=== PATIENT | male | born 1940 | race Caucasian/White ===

== ENCOUNTER 2017-07-21 11:19 | Emergency (ER) | payer MEDICARE ==
[2013-06-25 10:25] VITALS: BMI 29.7
[~2017-07-21 11:19] MED LIST: ASPIRIN 81 MG E81 MG PO; FISH OIL 1,2001 CA1 PO; GLUCOSAMINE & C1 CAP PO; PLAVIX75 MG PO; PRAVACHOL40 MG PO
== END 2017-07-21 14:47 | disposition home or self-care (01) ==
LOC: D.ER 11:19
DX: B02.9 Zoster without complications (principal)

== ENCOUNTER 2017-07-31 12:42 | Inpatient (IN) | payer MEDICARE ==
[2017-07-31] VITALS (19 sets, daily range): BP systolic 108–144; BP diastolic 59–75
--- NOTE | ~2017-07-31 | HEMODYNAMI ---
PATIENT:GINNY MAXWELL MEDICAL RECORD: [id number] : 44 [id number] ADMISSION DATE: 07/31/17 Generatedon:07/31/201714:08 Patient name: GINNY MAXWELL Patient #: [id number] SSN: : 1940 Date of study: 07/31/2017 Page: Of Hemodynamic Procedure Report Patient Data Patient Demographics Procedure consent was obtained First Name: GINNY Gender: Male Last Name: ALISSA : 1940 Middle Initial: G Age: 76 year(s) Patient #: [id number] Race: Unknown Additional ID: [id number] Contact details [address]: [address] [place] [address] State: [place] City: [place] Zip code: [address] Past Medical History Allergies Allergen Reaction Date Comments Reported Penicillins 07/31/2017 Admission Admission Data Admission Date: 07/31/2017 Admission Time: 12:42 Procedure Procedure Types Cath Procedure Diagnostic Procedure LHC LHC w/Coronaries PCI Procedure Coronary Stent Additional AMI-BMS/ALY Initial Miscellaneous Procedures Moderate Sedation up to 30 minutes Procedure Description Procedure Date Procedure Date: 07/31/2017 Procedure Start Time: 13:23 Procedure End Time: 14:08 Procedure Staff Name Function Az Kelly MD Performing Physician Stella Mayes RT Scrub Lupe Good RN Nurse Ambika Wheeler RT Monitor Procedure Data Cath Procedure Fluoroscopy Diagnostic fluoroscopy Total fluoroscopy Time: 10 time: 10 min min Diagnostic fluoroscopy Total fluoroscopy dose: dose: 1779 mGy 1779 mGy Contrast Material Contrast Material Type Amount (ml) Isovue 300 169 Entry Location Entry Primary Successful Side Size Upsize Upsize Entry Closure Succes sful Closure Location (Fr) 1 (Fr) 2 (Fr) Remarks Device Remarks Femoral Right 6 Fr Exoseal artery Short Estimated blood loss: 10 ml Diagnostic catheters Device Type Used For End Catheter Placement Cordis 5Fr Pigtail LV Angiography Catheter (MP) Cordis 5Fr JL 4.0 Left Coronary Catheter (MP) Angiography Cordis 5Fr 3DRC Catheter Right Coronary (MP) Angiography Procedure Complications No complications Procedure Medications Medication Administration Route Dosage Oxygen NC 2 l/min Lidocaine 2% added to field 20 Heparin Flush Bag added to field 2 bags (1000units/500ml NS) 0.9% NaCl I.V. 100 ml/hr Integrilin (Bolus I.V. 9 ml 2mg/ml) Integrilin (Bolus 9 ml 2mg/ml) Heparin Bolus I.V. 4000 units Integrilin Drip I.V. drip 15.5 ml/hr (75mg/100ml) Plavix P.O. 600 mg Versed I.V. 1 mg Fentanyl I.V. 50 mcg Versed I.V. 1 mg Fentanyl I.V. 50 mcg Hemodynamics Rest Heart Rate: 81 (bpm) Snapshots Pre Cath Intra NCS Post Cath Vital Signs Time Heart Resp SPO2 etCO2 NIBP (mmHg) Rhythm Pain Sedation Rate (ipm) (%) (mmHg) Status Level (bpm) 13:19:36 81 18 100 0 122/72(94) NSR 0 (11) 10(A) , No pain 13:23:53 83 15 96 0 111/66(89) NSR 0 (11) 10(A) , No pain 13:28:06 78 14 96 0 107/58(82) NSR 0 (11) 9(A) , No pain 13:32:18 83 15 98 0 107/63(82) NSR 0 (11) 9(A) , No pain 13:36:30 81 16 97 0 107/65(89) NSR 0 (11) 9(A) , No pain 13:40:40 83 14 98 0 124/72(98) NSR 0 (11) 9(A) , No pain 13:44:56 81 14 99 0 132/72(98) NSR 0 (11) 9(A) , No pain 13:49:12 79 13 99 0 130/73(99) NSR 0 (11) 10(A) , No pain 13:53:26 83 14 99 0 127/75(104) NSR 0 (11) 10(A) , No pain 13:57:42 83 13 99 0 122/72(102) NSR 0 (11) 10(A) , No pain 14:01:56 86 10 100 0 132/71(100) NSR 0 (11) 10(A) , No pain 14:06:10 80 12 100 0 121/74(101) NSR 0 (11) 10(A) , No pain Medications Time Medication Route Dose Verified Delivered Reason Notes Effectiveness by by 13:15:38 Oxygen NC 2 Az Agaie used for l/min Robin Good RN procedure 13:23:02 Fentanyl I.V. 50 Az Buffie for sedation mcg Robin Good RN 13:23:55 Versed I.V. 1 mg Az Yungie for sedation Robin Good RN 13:24:13 Lidocaine 2% added 20ml Az Az for local to vial Robin Kelly MD anesthetic field 13:24:19 Heparin Flush added 2 Az Az used for Bag to bags Robin Kelly MD procedure (1000units/500ml field NS) 13:24:28 0.9% NaCl I.V. 100 Az Buffie Per physician ml/hr Robin Good RN 13:29:24 Versed I.V. 1 mg Az Andrade for sedation Robin Good RN 13:29:28 Fentanyl I.V. 50 Az Buffie for sedation mcg Robin Good RN 13:31:17 Integrilin I.V. 9 ml Az Andrade for wasted 1 (Bolus 2mg/ml) Robin Good RN antiplatelet ml of therapy vial 13:32:58 Integrilin I.C 9 ml Az Az for wasted 1 (Bolus 2mg/ml) Robin Kelly MD antiplatelet ml of therapy vial 13:42:23 Heparin Bolus I.V. 4000 Az Andrade for verifi ed units Robin Good RN anticoagulation with dr kelly 13:50:15 Integrilin Drip I.V. 15.5 Az Andrade for (75mg/100ml) drip ml/hr Robin Good RN antiplatelet therapy 13:51:38 Plavix P.O. 600 Az Andrade for mg Robin Good RN antiplatelet therapy Procedure Log Time Note 13:03:56 Lupe Good RN sent for patient. Start room use. 13:03:57 Time tracking: Regular hours 13:04:00 Plan of Care:Hemodynamics will remain stable., Cardiac rhythm will remain stable., Comfort level will be maintained., Respiratory function will remain adequate., Patient/ family verbilizes understanding of procedure., Procedure tolerated without complication., Recovers from procedure without complications.. 13:04:04 Use device set Femoral Dx 13:04:05 Acist Syringe opened to sterile field. 13:04:05 Bag Decanter opened to sterile field. 13:04:06 Medline Cath Pack opened to sterile field. 13:04:07 St Ulises 260cm J .035 wire opened to sterile field. 13:04:08 Acist Hand Control opened to sterile field. 13:04:08 Acist Manifold opened to sterile field. 13:04:09 Diagnostic Infinity 5Fr Multipack catheter opened to sterile field. 13:04:09 Tegaderm 4 x 4 opened to sterile field. 13:04:18 Terumo 6Fr [place] Sheath opened to sterile field. 13:09:10 PERCUTANEOUS ENTRY 19GA needle opened to sterile field. 13:10:14 Patient received from ED to CCL 2 Alert and oriented. Tansferred to table in Supine position. 13:10:22 Warm blankets applied, and brie hugger turned on for patient comfort. 13:10:22 Correct patient and procedure confirmed by team. 13:10:23 Signed procedure consent form obtained from patient. 13:10:24 ECG and BP/O2 sat monitors applied to patient. 13:11:04 Full Disclosure recording started 13:15:38 Oxygen 2 l/min NC was administered by Lupe Good RN; used for procedure; 13:18:30 Vital chart was started 13:18:39 Rhythm: sinus rhythm , w/ ST elevation 13:18:44 H&P Date Dictated: 07/31/2017 Emergent; H&P N/A. 13:18:45 Pre-procedure instructions explained to patient. 13:18:46 Pre-op teaching completed and patient verbalized understanding. 13:18:47 Family in waiting room. 13:18:48 Patient NPO since Midnight. 13:19:05 Patient allergic to Penicillins 13:19:07 Is the patient allergic to Iodine/contrast media? No. 13:19:09 Is patient on blood thinner?No 13:19:12 Patient diabetic? No. 13:19:15 Previous problem with sedation/anesthesia? No ? 13:19:16 Snore? Yes 13:19:16 Sleep apnea? No 13:19:17 Deviated septum? No 13:19:18 Opens mouth fully? Yes 13:19:19 Sticks out tongue? Yes 13:19:20 Airway obstruction? No ? 13:19:22 Dentures? No ? 13:19:24 Pre procedure: right dorsailis pedis pulse 2+ Normal; easily identifiable; not easily obliterated 13:19:31 Patient pain scale 2/10 Chest. 13:19:37 IV patent on arrival in right hand with 0.9% NaCl at O. 13:19:52 Lab results completed and on chart. 13:19:54 Right groin area was prepped with chlora-prep and draped in sterile fashion 13:19:55 Alarms reviewed by R. N. 13::55 Sharps counted by scrub and verified by R.N. 13:22:17 ReserveOut PT Graphix J 182cm 0.014 guide wire opened to sterile field. 13:22:24 Final Timeout: patient, procedure, and site verified with staff and physician. All members of the team are in agreement. 13:23:02 Fentanyl 50 mcg I.V. was administered by Lupe Good RN; for sedation; 13:23:26 Right groin site verified by team. 13:23:29 Physical assessment completed. ASA score P 2 - A patient with mild systemic disease as per Az Kelly MD. 13:23:32 Sedation plan: IV Moderate Sedation Versed, Fentanyl 13:23:37 Procedure started. 13::55 Versed 1 mg I.V. was administered by Lupe Good RN; for sedation; 13:23:55 Local anesthetic to right femoral artery with Lidocaine 2% by Az Kelly MD.INITIAL ACCESS ONLY 13:24:13 Lidocaine 2% 20ml vial added to field was administered by Az Kelly MD; for local anesthetic; 13:24:19 Heparin Flush Bag (1000units/500ml NS) 2 bags added to field was administered by Az Kelly MD; used for procedure; 13:24:26 A 6 Fr Short sheath was inserted into the Right Femoral artery 13:24:28 0.9% NaCl 100 ml/hr I.V. was administered by Lupe Good RN; Per physician; 13:25:21 Baseline sample Acquired. 13:26:00 A CordSocialtext 5Fr Pigtail Catheter (MP) was advanced over the wire and used for LV Angiography. 13:26:17 LV gram done using DAVIS 13:26:34 EF : 50 % 13::37 Injector settings: Ml/sec: 10, Volume: 20, 13::39 Catheter removed. 13::44 A Cordis 5Fr JL 4.0 Catheter (MP) was advanced over the wire and used for Left Coronary Angiography. 13:27:49 Catheter removed. 13:28:16 A Cordis 5Fr 3DRC Catheter (MP) was advanced over the wire and used for Right Coronary Angiography. 13:29:08 Catheter removed. 13:29:16 Deligictronic Launcher 6Fr AR 2.0 SH guide catheter opened to sterile field. 13:29:24 Versed 1 mg I.V. was administered by Lupe Good RN; for sedation; 13:29:28 Fentanyl 50 mcg I.V. was administered by Lupe Good RN; for sedation; 13:30:04 6 Fr AR 2.0 SH guide catheter was inserted over the wire 13:31:17 Integrilin (Bolus 2mg/ml) 9 ml I.V. was administered by Lupe Good RN; for antiplatelet therapy; wasted 1 ml of vial 13:32:32 Reynolds Whisper J 300cm 0.014 guide wire opened to sterile field. 13:32:58 Integrilin (Bolus 2mg/ml) 9 ml I.C was administered by Az Kelly MD; for antiplatelet therapy; wasted 1 ml of vial 13:33:15 Whisper wire advanced. 13:34:47 The Javid OTW 2.5 x 18 stent was advanced then removed because of failure to cross lesion 13:36:03 Inflation number: 1 A Euphora 3.0 x 20 Balloon was prepped and advanced across the R PDA, then inflated to 17 ROXANA for 0:05 (min:sec). 13:36:14 Inflation number: 2 The Euphora 3.0 x 20 Balloon was reinflated across the R PDA, to 17 ROXANA for 0:05 (min:sec). 13:36:43 Inflation number: 3 The Euphora 3.0 x 20 Balloon was reinflated across the R PDA, to 19 ROXANA for 0:06 (min:sec). 13:36:57 Inflation number: 4 The Euphora 3.0 x 20 Balloon was reinflated across the R PDA, to 19 ROXANA for 0:05 (min:sec). 13:37:48 Balloon removed over the wire. 13:38:43 Inflation Number: 1 A [place] OTW 2.5 x 18 stent was prepped and advanced across the Prox RCA. The stent was deployed at 13 ROXANA for 0:08 (min:sec). 13:39:50 Wire removed. 13:42:05 [employer] PT Graphix J 300cm 0.014 guide wire opened to sterile field. 13:42:16 Graphix wire advanced. 13:42:23 Heparin Bolus 4000 units I.V. was administered by Lupe Good RN; for anticoagulation; verified with dr kelly 13:46:27 Stent catheter was removed intact over wire. 13:47:05 Inflation Number: 5 A Javid OTW 3.0 x 18 stent was prepped and advanced across the R PDA. The stent was deployed at 17 ROXANA for 0:05 (min:sec). 13:47:25 Stent catheter was removed intact over wire. 13:47:28 Wire removed. 13:48:01 Guide catheter removed. 13:48:08 Sheath removed intact; hemostasis achieved with Exoseal to the Right Femoral artery. 13:48:09 Procedure ended.(Physican Out) 13:50:15 Integrilin Drip (75mg/100ml) 15.5 ml/hr I.V. drip was administered by Lupe Good RN; for antiplatelet therapy; 13:51:38 Plavix 600 mg P.O. was administered by Lupe Good RN; for antiplatelet therapy; 13:51:51 Fluoroscopy time 10.00 minutes. 13:51:58 Fluoroscopy dose: 1779 mGy 13:51:58 Flurop Dose total: 1779 13:52:02 Contrast amount:Isovue 300 169ml. 13:52:04 Sharps counted by scrub and verified by R.N. 13:52:08 Insertion/operative site no bleeding no hematoma. 13:52:11 Post-op/insertion site Right Femoral artery dressed using a 4 x 4 and Tegaderm. 13:52:14 Post right femoral artery:stable, clean and dry 13:52:15 Post Procedure Pulses reassessed and unchanged 13:52:43 Post-procedure physical assessment completed. ASA score P 2 - A patient with mild systemic disease as per Az Kelly MD. 13:52:44 Post procedure rhythm: unchanged. 13:52:46 Estimated blood loss: 10 ml 13:52:49 Post procedure instruction explained to patient.Patient verbalizes understanding. 13:52:49 Patient needs reinforcement of post procedure teaching. 13:53:12 Procedure type changed to Cath procedure, Diagnostic procedure, LHC, LHC w/Coronaries, PCI procedure, Coronary Stent Additional, AMI-BMS/ALY Initial, Miscellaneous Procedures, Moderate Sedation up to 30 minutes 13:53:16 Procedure Complication : No complications 13:53:18 See physician's report for complete and final results. 13:53:32 Cordis 6Fr Exoseal opened to sterile field. 13:54:14 Merit BasixCompak Inflation Kit opened to sterile field. 13:54:37 IV Extension Set opened to sterile field. 13:55:46 Procedure and supply charges have been captured, reviewed, submitted and are correct. 14:07:49 Vital chart was stopped 14:07:52 Report given to CVICU. 14:07:55 Patient transfered to CVICU with Bed. 14:08:02 Procedure ended. 14:08:02 Full Disclosure recording stopped 14:08:06 End room use (Document Last) Intervention Summary Intervention Notes Time ActionType Lesion and Equipment Action# Pressure Duration Attributes Used 13:34:47 Discard Javid OTW Stent 2.5 x 18 stent 13:36:03 Inflate R PDA Euphora 1 17 00:05 balloon 3.0 x 20 Balloon 13:36:14 Reinflate R PDA Euphora 2 17 00:05 balloon 3.0 x 20 Balloon 13:36:43 Reinflate R PDA Euphora 3 19 00:06 balloon 3.0 x 20 Balloon 13:36:57 Reinflate R PDA Euphora 4 19 00:05 balloon 3.0 x 20 Balloon 13:38:43 Place stent Prox RCA Javid OTW 1 13 00:08 2.5 x 18 stent 13:47:05 Place stent R PDA [place] OTW 5 17 00:05 3.0 x 18 stent Device Usage Item Name Manufacture Quantity Catalog Number Hospital Part Current Min imal Lot# / Charge Number Stock Stock Serial# Code [facility] 1 [id number] [id number] 479949 409576 20 Syringe Jeds [employer] Bag Decanter Microtek 1 2001S 523391 64836 001269 5 Medical Inc. Medline Cath Cardinal 1 [id number] 077705 69480 726099 [address] [facility] St Ulises 1 582256 398745 128594 593163 30 260cm J .035 wire Acist Hand Acist 1 92801 054250 340559 152102 5 Control Medical Systems Inc Acist Acist 1 92670 859882 150172 874560 5 Bos[employer] Inc Diagnostic Cardinal 1 [id number] 540259 57099 141708 30 Infinity 5Fr Health Multipack catheter Tegaderm 4 x 3M 1 1626W 694439 954395 417917 5 4 Terumo 6Fr Terumo 1 QZY781 439768 261358 818414 40 [employer] Sheath PERCUTANEOUS [facility] 1 Y09378 878740 341014 5 ENTRY 19GA needle [place] [employer] [place] 1 [id number] 977485 601758 157238 5 PT Graphix J Scientific 182cm 0.014 guide wire Cordis 5Fr Cardinal 1 626020 5 Pigtail Health Catheter (MP) Cordis 5Fr Cardinal 1 755607 5 JL 4.0 Health Catheter (MP) Cordis 5Fr Cardinal 1 948321 5 3DRC Health Catheter (MP) Medtronic Medtronic 1 [id number] 136770 37639 359836 1 Launcher 6Fr AR 2.0 SH guide catheter Reynolds Reynolds 1 [id number] 503980 689761 841026 5 Whisper J Vascular 300cm 0.014 guide wire [place] OTW 2.5 Medtronic 1 [id number] 946382 39981 804512 5 [id number] x 18 stent Euphora 3.0 Medtronic 1 [id number] 615724 160958 432293 5 [id number] x 20 Balloon [place] [employer] [place] 1 [id number] 081370 712335 486985 5 PT Graphix J Scientific 300cm 0.014 guide wire Javid OTW 3.0 Medtronic 1 [id number] 860908 8986583 144478 5 [id number] x 18 stent Cordis 6Fr Cardinal 1 EX600 223888 214505 627982 10 [facility] Merit 1 ZS2515 419782 872580 503905 15 [facility] Medical Inflation Kit IV Extension Hospira 1 49069-64 177195 13220 077901 5 Set Signature Audit [place] Stage Time Signature Unsigned Intra-Procedure 07/31/2017 Ambika 2:08:17 PM Counts RT(R) Signatures Monitor : Ambika Signature : Counts RT Date : Time : [address] [place] [address]
[2017-07-31 13:32] LABS: BASOPHILS 0.3 % (0-2); EOSINOPHILS 0.6 % (0-7); HEMATOCRIT 44.8 % (42.0-54.0); HEMOGLOBIN 15.5 g/dL (13.5-17.5); LYMPHOCYTES 9.4 % (15-50); MCH 32.2 pg (26.0-34.0); MCHC 34.6 g/dL (31.0-37.0); MCV 93.1 fL (80.0-100.0); MEAN PLATELET VOLUME 9.9 fL (7.4-10.4); MONOCYTES 9.3 % (2-11); NEUTROPHILS 79.4 % (40-80); RBC 4.81 10x6/uL (4.20-6.10); RDW 12.3 % (11.5-14.5)
[2017-07-31 13:55] LABS: ALBUMIN 3.7 g/dL (3.4-5.0); ALKALINE PHOSPHATASE 67 U/L (46-116); ALT (SGPT) 61 U/L (10-68); BILIRUBIN - TOTAL 0.55 mg/dL (0.2-1.3); CALC OSMOLALITY 280 mosm/kg (275-300); CARBON DIOXIDE 25.3 mmol/L (21.0-32.0); CHLORIDE - SERUM 105 mmol/L (98-107); CREATININE - SERUM 0.9 mg/dL (0.6-1.3); GLUCOSE 122 mg/dL (74-106); PLATELET COUNT 300 10x3/uL (130-400); PROTEIN - SERUM 6.5 g/dL (6.4-8.2); SODIUM 140 mmol/L (136-145); UREA NITROGEN 16 mg/dL (7-18); eGFR NON AFRICAN AMERICAN 88 mL/min (90-120)
[2017-07-31 14:06] LABS: CHOL - HDL RATIO 3.7 ratio (2.3-4.9); CHOLESTEROL, TOTAL 143 mg/dL (0-200); CREATINE KINASE 419 UL (21-232); HDL CHOLESTEROL 39 mg/dL (32-96); LDL CHOLESTEROL 91 mg/dL (0-100); LDL-HDL RATIO 2.3 ratio (1.5-3.5); TRIGLYCERIDE 66 mg/dL (30-200); TROPONIN-I 0.023 ng/mL (0.000-0.060)
--- NOTE | 2017-07-31 14:36 | NUR ---
1416 PT ARRIVED IN THE CV ICU VIA BED FROM THE ASSISTANT DIRECTOR OF FINANCIAL AID PT IS AWAKE AND IS APPROPRIATE IN RESPONSES.. PT IS SUPINE WITH DRESSING TO THE RIGHT GROIN CDI.. PEDAL PULSES ARE PALPABLE. THERE IS PERIFERAL IV X2 WITH SALINE LOCK ON THE LEFT AND INTEGRILIN INFUSING ON THE RIGHT AT 15.5 CC/HR.. SR ON MONITOR WITH ELEVATED ST SEGMENT.. FAMILY IN THE CVICU WAITING AREA.. SEE FLOW SHEET FOR ASSESMENT FINDINGS.. AND VITAL SIGNS..
--- NOTE | 2017-07-31 18:45 | NUR ---
PATIENT SITTING UP ON BEDSIDE. FOOD TRAY WARMED AND GIVEN TO PATIENT. CALL LIGHT WITHIN REACH, BED IN LOW POSITION.
--- NOTE | 2017-07-31 19:30 | NUR ---
REPORT RECIEVED ASSESSMENT COMPLETED. SEE FLOW SHEET FOR FURTHER DEATILS. PT HAD WENT TO THE RESTROOM ON HIS OWN AN WAS DISCONNECTED FROM MONITOR. POSITIONED HIM FOR COMFORT AND HOOKED HIM BACK TO MONITOR. WILL CONTINUE TO CONTINUE TO MONITOR PT.
--- NOTE | 2017-07-31 21:00 | NUR ---
PT RESTING COMFORTABLY NO SIGNS OF DISTRESS. WILL CONTINUE TO MONITOR PT.
--- NOTE | 2017-07-31 23:00 | NUR ---
REASSESSMENT COMPLETED. SEE FLOW SHEET FURTHER DEATILS. NO ACUTE CHANGES. PT POSITIONED FOR COMFORT WILL CONTINUE TO MONITOR PT.
[2017-08-01] VITALS (10 sets, daily range): BP systolic 124–140; BP diastolic 59–79
--- NOTE | 2017-08-01 01:08 | NUR ---
PT REQUESTED TO GO TO THE RESTROOM. HELPED TO THE RESTROOM AND BACK TO BED SAFELY AND POSITIONED FOR COMFORT WILL CONTINUE TO MONITOR PT.
--- NOTE | 2017-08-01 03:16 | NUR ---
REASSESSMENT COMPLETED. NO ACUTE CHANGES. PT POSITIONED FOR COMFORT WILL CONTINUE TO MONITOR PT.
--- NOTE | 2017-08-01 05:16 | NUR ---
PT RESTING WITH NO SIGNS OF DISTRESS. WILL CONTINUE TO MONITOR PT.
--- NOTE | 2017-08-01 08:05 | NUR ---
SHIFT ASSESSMENT COMPLETE. PATIENT UP TO BEDSIDE FOR BREAKFAST.
--- NOTE | 2017-08-01 09:54 | NUR ---
PATIENT RESTING WITH EYES CLOSED AT THIS TIME. CALL LIGHT WITHIN REACH, BED IN LOW POSITION.
--- NOTE | 2017-08-01 11:14 | NUR ---
DISCHARGE INSTRUCTION GIVEN TO PATIENT AND , BOTH VERBALIZE UNDERSTANDING OF INSTRUCTIONS.
--- NOTE | 2017-08-01 11:20 | NUR ---
PATIENT DISCHARGED TO POV VIA W/C IN GOOD STABLE CONDITION. PATIENT TRANSFERRED SELF WITHOUT ASSIST.
--- NOTE | 2017-08-15 14:14 | OP ---
PATIENT NAME: GINNY MAXWELL MEDICAL RECORD: [id number] :44 LOCATION:[facility].CV08 ADMISSION DATE:07/31/17 SURGEON: ISAK NEWMAN MD DATE OF OPERATION: 07/31/2017 PROCEDURES: 1. Percutaneous transluminal coronary angioplasty stent, right coronary artery, patent ductus arteriosus. 2. Percutaneous transluminal coronary angioplasty stent, right coronary artery. 3. Left heart catheterization. 4. Selective coronary angiography. 5. Left ventriculogram. INDICATION: Acute inferior myocardial infarction. DESCRIPTION OF PROCEDURE: After informed consent was obtained and after a detailed explanation of the risks, benefits as well as alternative therapies, the patient elected to proceed with angiogram and angioplasty. The right femoral area is prepped and draped in normal sterile fashion. The right femoral artery was cannulated via modified Seldinger technique with placement of 6-[place] sheath. All catheters exchanged through this sheath. FINDINGS: The left ventriculogram was performed in standard 30-degree DAVIS view, reveals inferior hypokinesis, ejection fraction; however, preserved at 50%. SELECTIVE CORONARY ANGIOGRAPHY: 1. Left main showed no significant angiographic disease. 2. Left anterior descending has a 70% stenosis in the mid distal vessel. 3. Left circumflex has 80% stenosis proximally. 4. The right coronary has a clot in the mid distal vessel. PDA has 90% stenosis, proximal vessel with 70% to 80% stenosis. PTCA STENT OF THE RCA: The PDA was addressed with a 2.5 x 18 mm [place] proximal vessel with a 3.0 x 18 mm Javid. Result was 0% residual stenosis. OVERALL IMPRESSION: Successful percutaneous transluminal coronary angioplasty stent of the right coronary artery going from 90% initial stenosis with clot and 0% residual stenosis. No further clot. TRANSINT:[id number] Voice Confirmation ID: [id number] DOCUMENT ID: [id number] ISAK NEWMAN MD at 1414 CC: [id number] DICTATION DATE: 07/31/17 1405 [place] GOVERNOR: 07/31/17 1433 DIS IN 08/01/17 [place] [address]
== END 2017-08-01 11:20 | disposition home or self-care (01) | DRG 247 ==
LOC: D.CVICU 12:42 → D.ER 12:42 → EDSTATUS 14:00 → D.CVICU 14:26 → D.ER 14:26 → D.CVICU 14:27
PROVIDERS: Emergency Medicine; ADMIT Internal Medicine Interventional Cardiology
PROC: B2111ZZ Fluoroscopy of Multiple Coronary Arteries using Low Osmolar Contrast (ICD-10-PCS; 2017-07-31)
PROC: B2151ZZ Fluoroscopy of Left Heart using Low Osmolar Contrast (ICD-10-PCS; 2017-07-31)
PROC: 027034Z Dilation of Coronary Artery, One Artery with Drug-eluting Intraluminal Device, Percutaneous Approach (ICD-10-PCS; principal; 2017-07-31 14:00)
PROC: 4A023N7 Measurement of Cardiac Sampling and Pressure, Left Heart, Percutaneous Approach (ICD-10-PCS; 2017-07-31 14:00)
DX: I21.19 ST elevation (STEMI) myocardial infarction involving other coronary artery of inferior wall (principal); I25.10 Atherosclerotic heart disease of native coronary artery without angina pectoris; Z95.5 Presence of coronary angioplasty implant and graft; I10 Essential (primary) hypertension; E78.5 Hyperlipidemia, unspecified

== ENCOUNTER 2017-08-06 07:51 | Outpatient (CLI) | payer MEDICARE ==
--- NOTE | ~2017-08-06 | HEMODYNAMI ---
PATIENT:GINNY MAXWELL MEDICAL RECORD: [id number] : 44 LOCATION:[facility] ADMISSION DATE: 08/06/17 Generatedon:08/06/201710:34 Patient name: GINNY MAXWELL Patient #: [id number] SSN: : 1940 Date of study: 08/06/2017 Page: Of Hemodynamic Procedure Report Patient Data Patient Demographics Procedure consent was obtained First Name: GINNY Gender: Male Last Name: ALISSA : 1940 Middle Initial: G Age: 76 year(s) Patient #: [id number] Race: Unknown Additional ID: [id number] Contact details [address]: [address] [place] [address] State: [place] City: [place] Zip code: [address] Past Medical History Allergies Allergen Reaction Date Comments Reported Penicillins 07/31/2017 Admission Admission Data Admission Date: 08/06/2017 Admission Time: 7:51 Procedure Procedure Types Cath Procedure Diagnostic Procedure FFR/IVUS Intra-Coronary IVUS Initial PCI Procedure Coronary Stent Initial x2 Miscellaneous Procedures Moderate Sedation up to 30 minutes Procedure Description Procedure Date Procedure Date: 08/06/2017 Procedure Start Time: 10:11 Procedure End Time: 10:30 Procedure Staff Name Function Az Kelly MD Performing Physician Calin Workman RN Nurse Berto Garcia RT Monitor Shana Tao RT Scrub Procedure Data Cath Procedure Fluoroscopy Diagnostic fluoroscopy Total fluoroscopy Time: 6.4 time: 6.4 min min Diagnostic fluoroscopy Total fluoroscopy dose: 367 dose: 367 mGy mGy Contrast Material Contrast Material Type Amount (ml) Isovue 300 120 Entry Location Entry Primary Successful Side Size Upsize Upsize Entry Closure Patterson ccessful Closure Location (Fr) 1 (Fr) 2 (Fr) Remarks Device Remarks Radial Right 6 Fr Mechanical artery Short Compression Estimated blood loss: 10 ml Procedure Complications No complications Procedure Medications Medication Administration Route Dosage Heparin Flush Bag added to field 2 bags (1000units/500ml NS) 0.9% NaCl I.V. 100 ml/hr Oxygen NC 2 l/min Radial Cocktail added to field 1 syringe (Verapomil 2mg/Nitro 400mcg/Heparin 1500units) Radial Cocktail I.A. 1 syringe (Verapomil 2mg/Nitro 400mcg/Heparin 1500units) Fentanyl I.V. 50 mcg Versed I.V. 1 mg Heparin Bolus I.V. 4000 units Fentanyl I.V. 50 mcg Versed I.V. 1 mg Hemodynamics Rest Heart Rate: 68 (bpm) Pressure Samples Time Site Value (mmHg) Purpose Heart Use Rate(bpm) 10:20 AO 119/63(89) Snapshot 81 Snapshots Pre Cath Intra NCS Post Cath Vital Signs Time Heart Resp SPO2 etCO2 NIBP (mmHg) Rhythm Pain Sedation Rate (ipm) (%) (mmHg) Status Level (bpm) 10:03:50 82 18 93 0 142/85(113) NSR 0 (11) 10(A) , No pain 10:08:00 80 16 92 34 149/94(123) NSR 0 (11) 10(A) , No pain 10:12:22 86 18 92 41.6 137/77(123) NSR 0 (11) 10(A) , No pain 10:16:34 81 17 92 0 140/76(108) NSR 0 (11) 9(A) , No pain 10:20:43 81 18 95 9.8 135/77(107) NSR 0 (11) 9(A) , No pain 10:24:59 79 18 93 9 122/69(91) NSR 0 (11) 9(A) , No pain 10:29:07 80 18 93 9 117/74(91) NSR 0 (11) 9(A) , No pain Medications Time Medication Route Dose Verified Delivered Reason Note s Effectiveness by by 10:08:38 Heparin Flush added 2 bags Az Layton used for Bag to Robin Workman RN procedure (1000units/500ml field NS) 10:11:11 0.9% NaCl I.V. 100 Az Layton Per physician ml/hr Robin Workman RN 10:11:22 Oxygen NC 2 l/min Az Layton Per physician Robin Workman RN 10:11:56 Radial Cocktail added 1 Az Layton used for (Verapomil to syringe Robin Workman RN procedure 2mg/Nitro field 400mcg/Heparin 1500units) 10:12:00 Radial Cocktail I.A. 1 Az Bernardo for (Verapomil syringe Robin Kelly MD vasodilation 2mg/Nitro 400mcg/Heparin 1500units) 10:12:08 Fentanyl I.V. 50 mcg Az Layton for sedation Robin Workman RN 10:12:16 Versed I.V. 1 mg Az Layton for sedation Robin Workman RN 10:13:04 Heparin Bolus I.V. 4000 Az Layton for units Robin Workman RN anticoagulation 10:24:44 Fentanyl I.V. 50 mcg Az Layton for sedation Robin Workman RN 10:24:48 Versed I.V. 1 mg Az Layton for sedation Robin Workman RN Procedure Log Time Note 9:33:55 Berto Garcia RT(R) sent for patient. Start room use. 9:33:56 Time tracking: Regular hours 9:34:00 Plan of Care:Hemodynamics will remain stable., Cardiac rhythm will remain stable., Comfort level will be maintained., Respiratory function will remain adequate., Patient/ family verbilizes understanding of procedure., Procedure tolerated without complication., Recovers from procedure without complications.. 9:48:57 Patient received from Pre/Post Procedure Room to CCL 1 Alert and oriented. Tansferred to table in Supine position. 9:48:58 Warm blankets applied, and brie hugger turned on for patient comfort. 9:48:59 Correct patient and procedure confirmed by team. 9:49:00 Signed procedure consent form obtained from patient. 9:49:01 ECG and BP/O2 sat monitors applied to patient. 10:02:44 Vital chart was started 10:02:45 Baseline sample Acquired. 10:02:51 Rhythm: sinus rhythm 10:02:55 Full Disclosure recording started 10:03:00 H&P Date Dictated: 08/06/2017 New H&P dictated by physician.. 10:03:01 Pre-procedure instructions explained to patient. 10:03:02 Pre-op teaching completed and patient verbalized understanding. 10:03:03 Family in waiting room. 10:03:04 Patient NPO since Midnight. 10:03:06 Is the patient allergic to Iodine/contrast media? No. 10:03:07 Is patient on blood thinner?Yes 10:03:09 ACC The patient was administered the following blood thiners within the last 24 hours: ACCPlavix 10:03:12 Patient diabetic? No. 10:03:14 Previous problem with sedation/anesthesia? No ? 10:03:15 Snore? Yes 10:03:16 Sleep apnea? No 10:03:17 Deviated septum? No 10:03:17 Opens mouth fully? Yes 10:03:18 Sticks out tongue? Yes 10:03:20 Airway obstruction? No ? 10:03:21 Dentures? No ? 10:03:24 Pre procedure: right dorsailis pedis pulse 1+ Palpable, but thready & weak; easily obliterated 10:03:27 Modified Edward's test Ulnar < 7 seconds 10:03:28 Patient pain scale 0/10 ?. 10:03:34 IV patent on arrival in left hand with 0.9% NaCl at O. 10:03:35 Lab results completed and on chart. 10:03:38 Right Radial & Right Groin area was prepped with chlora-prep and draped in sterile fashion 10:03:40 Alarms reviewed by R. N. 10:03:40 Sharps counted by scrub and verified by R.N. 10:03:44 Use device set Radial PCI 10:03:46 Tegaderm 4 x 4 opened to sterile field. 10:03:47 Acist Manifold opened to sterile field. 10:03:48 Acist Syringe opened to sterile field. 10:03:48 Acist Hand Control opened to sterile field. 10:03:49 Bag Decanter opened to sterile field. 10:03:49 Medline Cath Pack opened to sterile field. 10:03:49 Merit BasixCompak Inflation Kit opened to sterile field. 10:03:50 Terumo 6Fr Slender Glidesheath opened to sterile field. 10:03:50 MBrace Wrist Support opened to sterile field. 10:03:50 St Ulises 260cm J .035 wire opened to sterile field. 10:04:56 --------ALL STOP TIME OUT------ 10:04:56 Final Timeout: patient, procedure, and site verified with staff and physician. All members of the team are in agreement. 10:04:59 Right Radial & Right Groin site verified by team. 10:05:02 Physical assessment completed. ASA score P 2 - A patient with mild systemic disease as per Az Kelly MD. 10:05:05 Sedation plan: IV Moderate Sedation Versed, Fentanyl 10:08:20 [place] Sci PT Graphix J 182cm 0.014 guide wire opened to sterile field. 10:08:21 [place] Wendell Eagleye IVUS Catheter opened to sterile field. 10:08:38 Heparin Flush Bag (1000units/500ml NS) 2 bags added to field was administered by Calin Workman RN; used for procedure; 10:10:18 Procedure started. 10:11:11 0.9% NaCl 100 ml/hr I.V. was administered by Calin Workman RN; Per physician; 10:11:22 Oxygen 2 l/min NC was administered by Calin Workman RN; Per physician; 10:11:38 Cordis 6FR XBLAD 3.5 guide catheter opened to sterile field. 10:11:56 Radial Cocktail (Verapomil 2mg/Nitro 400mcg/Heparin 1500units) 1 syringe added to field was administered by Calin Workman RN; used for procedure; 10:11:56 Local anesthetic to right radial artery with Lidocaine 2% by Az Kelly MD.INITIAL ACCESS ONLY 10:12:00 Radial Cocktail (Verapomil 2mg/Nitro 400mcg/Heparin 1500units) 1 syringe I.A. was administered by Az Kelly MD; for vasodilation; 10:12:08 Fentanyl 50 mcg I.V. was administered by Calin Workman RN; for sedation; 10:12:16 Versed 1 mg I.V. was administered by Calin Workman RN; for sedation; 10:12:23 A 6 Fr Short sheath was inserted into the Right Radial artery 10:12:33 6 Fr XBLAD 3.5 guide catheter was inserted over the wire 10:13:04 Heparin Bolus 4000 units I.V. was administered by Calin Workman RN; for anticoagulation; 10:14:06 PT Graphix wire advanced. 10:14:09 Wire advanced across lesion. 10:14:27 IVUS catheter advanced over wire. 10:15:18 IVUS pass to LAD lesion performed. 10:15:19 IVUS catheter removed over wire. 10:18:09 Inflation Number: 1 A [place] RX 3.0 x 15 stent was prepped and advanced across the Prox LAD. The stent was deployed at 13 ROXANA for 0:10 (min:sec). 10:18:57 Inflation number: 2 The stent balloon was then re-inflated across the Prox LAD to 15 ROXANA for 0:10 (min:sec). 10:20:08 Stent catheter was removed intact over wire. 10:20:16 Wire redirected to CIRC. 10:24:44 Fentanyl 50 mcg I.V. was administered by Calin Workman RN; for sedation; 10:24:48 Versed 1 mg I.V. was administered by Calin Workman RN; for sedation; 10:25:31 Inflation Number: 1 A [place] RX 2.75 x 12 stent was prepped and advanced across the Prox CX. The stent was deployed at 13 ROXANA for 0:10 (min:sec). 10:26:34 Stent catheter was removed intact over wire. 10:27:29 Inflation Number: 2 A [place] RX 2.75 x 15 stent was prepped and advanced across the Prox CX. The stent was deployed at 15 ROXANA for 0:10 (min:sec). 10:28:05 Stent catheter was removed intact over wire. 10:28:05 Wire removed. 10:28:06 Guide catheter removed. 10:28:13 Terumo TR Band Standard opened to sterile field. 10:28:20 Sheath removed intact; hemostasis achieved with Mechanical Compression to the Right Radial artery. 10:28:24 Procedure ended.(Physican Out) 10:29:39 Fluoroscopy time 06.40 minutes. 10:29:45 Fluoroscopy dose: 367 mGy 10:29:45 Flurop Dose total: 367 10:29:50 Contrast amount:Isovue 300 120ml. 10:29:51 Sharps counted by scrub and verified by R.N. 10:29:54 TR band inflated with 12cc of air. 10:29:55 Insertion/operative site no bleeding no hematoma. 10:29:56 Post Procedure Pulses reassessed and unchanged 10:29:59 Post-procedure physical assessment completed. ASA score P 2 - A patient with mild systemic disease as per Az Kelly MD. 10:30:01 Post procedure rhythm: unchanged. 10:30:03 Estimated blood loss: 10 ml 10:30:05 Post procedure instruction explained to patient.Patient verbalizes understanding. 10:30:05 Patient needs reinforcement of post procedure teaching. 10:30:23 Procedure type changed to Cath procedure, Diagnostic procedure, FFR/IVUS, Intra-Coronary IVUS Initial, PCI procedure, Coronary Stent Initial x2, Miscellaneous Procedures, Moderate Sedation up to 30 minutes 10:30:27 Procedure Complication : No complications 10:30:50 Procedure and supply charges have been captured, reviewed, submitted and are correct. 10:30:51 Vital chart was stopped 10:30:51 See physician's report for complete and final results. 10:30:53 Report given to Pre/Post Procedure Room. 10:30:55 Patient transfered to Pre/Post Procedure Room with Stretcher. 10:30:57 Procedure ended. 10:30:57 Full Disclosure recording stopped 10:32:11 End room use (Document Last) Intervention Summary Intervention Notes Time ActionType Lesion and Equipment Action# Pressure Duration Attributes Used 10:18:09 Place stent Prox LAD [place] RX 1 13 00:10 3.0 x 15 stent 10:18:57 Reinflate Prox LAD [place] RX 2 15 00:10 stent 3.0 x 15 balloon stent 10:25:31 Place stent Prox CX Javid RX 1 13 00:10 2.75 x 12 stent 10:27:29 Place stent Prox CX [place] RX 2 15 00:10 2.75 x 15 stent Device Usage Item Name Manufacture Quantity Catalog Number Hospital Part Current Mini [facility] Lot# / Charge Number Stock Stock Serial# Code Tegaderm 4 1 [id number] [id number] 216066 5 x 4 Acist Acist 1 03305 232042 264572 892739 5 Manifold Medical Systems Inc Acist Acist 1 69601 878278 130364 323236 20 Syringe Medical Systems Inc Acist Hand Acist 1 83703 001682 891129 389575 5 Control Medical Systems Inc Bag Microtek 1 2002S 357652 50099 505356 5 DecAvenso Inc. Medline Cardinal 1 [id number] 785351 99161 158551 5 Cath [facility] Merit 1 [id number] 936690 349913 055024 15 BasixCompaMarbles: [employer] Store Medical Inflation Kit Terumo 6Fr Terumo 1 [id number] 680042 984551 942559 40 Slender Glidesheath MBrace Advanced 1 140-0250-00 542454 85435 762919 [address] Dynamics St Ulises St Ulises 1 775709 083713 736129 904948 30 260cm J .035 wire [place] Sci [place] 1 [id number] 690276 854962 057272 5 PT Graphix Scientific J 182cm 0.014 guide wire [place] 1 66631U 731552 854281 067342 8 Wendell Eagleye IVUS Catheter Cordis 6FR Cardinal 1 [id number] 576051 899361 420214 10 XBLAD 3.5 Health guide catheter Javid RX 3.0 Medtronic 1 [id number] 619709 7375564 489688 5 [id number] x 15 stent [place] RX Medtronic 1 [id number] 486195 3464280 734709 5 [id number] 2.75 x 12 stent Javid RX Medtronic 1 [id number] 576940 3370479 707755 5 [id number] 2.75 x 15 stent Terumo TR Terumo 1 [id number] 302324 209797 598531 40 Band Standard Signature Audit [place] Stage Time Signature Unsigned Intra-Procedure 08/06/2017 Berto Garcia 10:34:14 AM RT(R) Signatures Monitor : Berto Garcia RT Signature : Date : Time : [facility] [address] [place] [address]
[2017-08-06] MEDS ORDERED: NEURONTIN 300300 MG PO (08:27)
[2017-08-06 08:32] VITALS: BP 162/90; BMI 28.0
[2017-08-06] MEDS ORDERED: PLAVIX75 MG PO (08:38)
[2017-08-06 08:44] LABS: BASOPHILS 0.2 % (0-2); EOSINOPHILS 2.4 % (0-7); HEMATOCRIT 48.7 % (42.0-54.0); HEMOGLOBIN 17.1 g/dL (13.5-17.5); IMMATURE GRANULOCYTES 0.6 % (0-5); LYMPHOCYTES 19.7 % (15-50); MCH 32.7 pg (26.0-34.0); MCHC 35.1 g/dL (31.0-37.0); MCV 93.1 fL (80.0-100.0); MEAN PLATELET VOLUME 10.4 fL (7.4-10.4); MONOCYTES 12.5 % (2-11); NEUTROPHILS 64.6 % (40-80); PLATELET COUNT 292 10x3/uL (130-400); RBC 5.23 10x6/uL (4.20-6.10); RDW 12.5 % (11.5-14.5); WBC 12.6 10x3/uL (4.8-10.8)
[2017-08-06 08:55] LABS: CALC OSMOLALITY 284 mosm/kg (275-300); CALCIUM 9.1 mg/dL (8.5-10.1); CHLORIDE - SERUM 105 mmol/L (98-107); GLUCOSE 114 mg/dL (74-106); POTASSIUM - SERUM 3.9 mmol/L (3.5-5.1); SODIUM 141 mmol/L (136-145); UREA NITROGEN 20 mg/dL (7-18); eGFR NON AFRICAN AMERICAN 78 mL/min (90-120)
--- NOTE | 2017-08-06 10:55 | NUR ---
2L NC, NO RESP DISTRESS. RIGHT WRIST TR BAND CDI, NO BLEEDING OR HEMATOMA NOTED. NO C/O PAIN OR NAUSEA. VSS. FAMILY AT BEDSIDE, CALL LIGHT WITHIN REACH.
--- NOTE | 2017-08-06 11:25 | NUR ---
RIGHT WRIST TR BAND CDI, NO BLEEDING OR HEMATOMA NOTED. 2L NC, NO RESP DISTRESS. SANDWICH TRAY AND DRINK GIVEN, NO C/O NAUSEA. VSS. WILL CONTINUE TO MONITOR.
--- NOTE | 2017-08-06 11:40 | NUR ---
RESTING QUIETLY WITH EYES CLOSED. VSS. 2L NC, NO RESP DISTRESS. RIGHT WRIST TR BAND CDI, NO BLEEDING NOTED. DENIES ANY NEEDS AT THIS TIME. CALL LIGHT WITHIN REACH.
--- NOTE | 2017-08-06 12:40 | NUR ---
RIGHT WRIST TR BAND CDI, NO BLEEDING OR HEMATOMA NOTED. 2L NC, NO RESP DISTRESS. NO C/O AT THIS TIME. WILL CONTINUE TO MONITOR.
--- NOTE | 2017-08-06 13:45 | NUR ---
3CC OF AIR REMOVED FROM TR BAND, NO BLEEDING NOTED.
--- NOTE | 2017-08-06 13:53 | NUR ---
3CC OF AIR REMOVED FROM TR BAND, NO BLEEDING NOTED.
--- NOTE | 2017-08-06 14:04 | NUR ---
3CC OF AIR REMOVED FROM TR BAND, NO BLEEDIGN NOTED.
--- NOTE | 2017-08-06 14:13 | NUR ---
LEFT HAND PIV D/C'D WITH CATHETER INTACT, BAND AID TO SITE. UP TO BEDSIDE TO GET DRESSED.
--- NOTE | 2017-08-06 14:25 | NUR ---
REMAINING AIR REMOVED FROM TR BAND, DRESSING TO SITE. DISCHARGE INSTRUCTIONS GIVEN, VERBALIZED UNDERSTANDING.
--- NOTE | 2017-08-06 14:35 | NUR ---
TAKEN OUT VIA WHEELCHAIR BY CATH AERIAL CROP DUSTER. LEFT FACILITY WITH AND ALL PERSONAL BELONGINGS.
--- NOTE | 2017-08-15 14:14 | HP ---
PATIENT: GINNY GALEAS MEDICAL RECORD: [id number] ACCOUNT: [id number] LOCATION:[facility] : 44 ADMISSION DATE: 08/06/17 HISTORY AND PHYSICAL EXAMINATION ADMITTING DIAGNOSES: 1. Angina. 2. Coronary artery disease. 3. Recent myocardial infarction with PTCA stent to the RCA with concomitant disease in LAD and circumflex. 4. Hypertension. 5. Hyperlipidemia. HISTORY OF PRESENT ILLNESS: Mr. Galeas presents with anginal symptomatology. Last week, presented with a myocardial infarction, underwent PTCA stent of the RCA, was found to have 3-vessel coronary artery disease, is now brought back for PTCA stent of the LAD and circumflex. PHYSICAL EXAMINATION: GENERAL APPEARANCE: Well-nourished, well-developed, appears stated age. Level of distress, comfortable. PSYCHIATRIC: Mental status, alert, normal affect. Orientation, oriented to time, place and person. EYES: Lids and conjunctiva, noninjected. No discharge, no pallor. ENT: Lips, teeth, gums, normal dentition. Oropharynx, no cyanosis, no pallor. NECK: Carotid arteries, bilateral normal upstroke, no bruits, no thrills. JUGULAR VEINS: No jugular venous pressure or distention. CERVICAL LYMPH NODES: Nontender, nonenlarged. THYROID: Not enlarged. Nontender. No nodules. LUNGS: Respiratory effort, unlabored. CHEST: Normal curvature. No thoracic deformity. No chest wall tenderness. Percussion, resonant. Auscultation, clear. No wheezes, no rales, no rhonchi. CARDIOVASCULAR: Precordial exam, nondisplaced. No heaves or pericardial thrills. Rate and rhythm, regular. Heart sounds, normal S1, normal S2. No S3, no gallop, no rub. Systolic murmur, not heard. Diastolic murmur, not heard. EXTREMITIES: No cyanosis, no edema. Peripheral pulses, full and equal in all extremities, except as noted. No bruits appreciated. ABDOMEN: Soft, nondistended. Normal aorta. No bruit. Nontender. No masses. Liver, nontender, no hepatomegaly. Spleen, nontender, no splenomegaly. MUSCULOSKELETAL: No joint tenderness. No joint swelling. No erythema. NEUROLOGICAL: Normal gait, normal strength, normal tone. SKIN: Warm and dry. REVIEW OF SYSTEMS: The patient reports easy bruising but reports no swollen glands. The patient reports no fever, no night sweats, no significant weight gain, no significant weight loss. No significant exercise tolerance. The patient reports no dry eyes, no irritation, no vision change. Patient reports no difficulty hearing and no ear pain. Patient reports no frequent nose bleeds or nose and sinus problems. Patient reports on arm pain on exertion. No shortness of breath while lying down. No history of heart murmur. Patient reports no cough, no wheezing or coughing up blood. Patient reports no abdominal pain, no vomiting. Normal appetite. No diarrhea and not vomiting blood. No nausea and no constipation. Patient reports no incontinence. No difficulty urinating. No hematuria. No increased frequency. Patient reports no muscle aches. No weakness, no arthralgias, no back pain. No swelling of the HISTORY AND PHYSICAL [id number] GINNY GALEAS extremities. Patient reports no abnormal mole, no jaundice, no rashes. Reports no loss of consciousness. No weakness and no numbness. No seizures, dizziness, or headaches. The patient reports no depression, no sleep disturbance, feeling safe in a relationship and no alcohol abuse. Patient reports on fatigue. Reports no runny nose or sinus pressure. No itching, no hives, and no frequent sneezing. OVERALL IMPRESSION: Anginal symptomatology with disease of the LAD and circumflex. We will proceed with transcatheter revascularization of the LAD and circumflex. TRANSINT:[id number] Voice Confirmation ID: [id number] DOCUMENT ID: [id number] ISAK NEWMAN MD at 1414 CC: [id number] DICTATION DATE: 08/06/17 1215 FACILITY EXAMINER: 08/06/17 1221 DEP CLI 08/06/17 [place] [id number] [place] [address]
--- NOTE | 2017-08-15 14:14 | OP ---
PATIENT NAME: GINNY MAXWELL MEDICAL RECORD: [id number] :44 LOCATION:D.CAT ADMISSION DATE: SURGEON: ISAK NEWMAN MD DATE OF OPERATION: 08/06/2017 PROCEDURES: 1. PTCA stent to LAD. 2. PTCA stent to left circumflex. 3. Intravascular ultrasound. 4. Selective coronary angiography. INDICATION: Angina and coronary artery disease. PROCEDURE IN DETAIL: After informed consent was obtained and after detailed explanation of risks, benefits as well as alternative therapies, the patient elected to proceed with angiogram and angioplasty. The right radial area was prepped and draped in normal sterile fashion. The right radial artery was cannulated via modified Seldinger technique with placement of 6-[place] sheath. All catheters exchanged through this sheath. FINDINGS: Left anterior descending has 74% stenosis in the proximal aspect confirmed by intravascular ultrasound. This was addressed with a 3.0 x 15 mm [place] stent. The left circumflex has 80% stenosis times 2. This was addressed with a 2.75 x12 and 2.75 x15 [place] stents. Result was 0% residual throughout. OVERALL IMPRESSION: Successful percutaneous transluminal coronary angioplasty stent of left anterior descending and circumflex going from 80% initial stenosis to 0% residual. TRANSINT:[id number] Voice Confirmation ID: [id number] DOCUMENT ID: [id number] ISAK NEWMAN MD at 1414 CC: [id number] DICTATION DATE: 08/06/17 1035 DOUBLE END TENON OPERATOR: 08/06/17 1142 DEP CLI 08/06/17 [place] [id number]
== END 2017-08-06 14:35 | disposition home or self-care (01) ==
LOC: D.CATH 07:51
PROVIDERS: Internal Medicine Interventional Cardiology
DX: I25.119 Atherosclerotic heart disease of native coronary artery with unspecified angina pectoris (principal); I10 Essential (primary) hypertension; E78.5 Hyperlipidemia, unspecified; Z01.812 Encounter for preprocedural laboratory examination
CPT/HCPCS: 92978; C9600 ×2

== ENCOUNTER → 2017-11-19 08:13 | Outpatient (CLI) | payer MEDICARE ==
[~2017-11-19 08:13] MED LIST changes: +NEURONTIN 300300 MG PO
== END | disposition home or self-care (01) ==
LOC: D.US 08:13
DX: E04.1 Nontoxic single thyroid nodule (principal)

== ENCOUNTER → 2019-04-13 08:38 | Outpatient (CLI) | payer MEDICARE ==
--- NOTE | 2019-04-16 16:51 | ST ---
PATIENT:GINNY MAXWELL MEDICAL RECORD: [id number] SEX: M LOCATION:[facility] ORDER #: ADMISSION DATE: 04/13/19 AGE OF PATIENT: 78 REFERRING PHYSICIAN: INTERPRETING PHYSICIAN: ISAK NEWMAN MD DATE OF SERVICE: 04/13/2019 INDICATION: Angina, coronary artery disease, previous multivessel PTCA stent. DESCRIPTION OF PROCEDURE: He was exercised on a Hesham protocol for 6 minutes, terminated due to achievement of maximum target heart rate response with 32 mCi of sestamibi injected at peak stress, 11 mCi was used previously for rest images. FINDINGS: Gated SPECT reveals preserved ejection fraction at 59% with good wall motioning and thickening and brightening throughout all segments. SPECT imaging: Cardiology was used as myocardial perfusion agent. There is a large area of reversibility anteriorly, laterally and apically. This includes the basal, mid, apical, anterior segments, the apical lateral, mid lateral, basal lateral segments as well as the apex itself. The degree of reversibility is mild to moderate. The amount of myocardium involved is large. OVERALL IMPRESSION: This is a high risk abnormal nuclear stress test with a large amount of myocardium showing reversibility anteriorly, laterally and apically suggestive of possible multivessel coronary artery disease. We will proceed with coronary angiography as followup study. TRANSINT:[id number] Voice Confirmation ID: [id number] DOCUMENT ID: [id number] ISAK NEWMAN MD at 1651 CC: GINNY MONDRAGON MD [id number] DICTATION DATE: 04/13/19 1627 LAUNDRY HOUSEKEEPING AIDE: 04/14/19 0039 DEP CLI 04/13/19 [place] [id number] [place] [id number]
== END | disposition home or self-care (01) ==
LOC: D.HCCARDIO 08:38
PROVIDERS: ATTEND Internal Medicine Interventional Cardiology
DX: I25.10 Atherosclerotic heart disease of native coronary artery without angina pectoris (principal)

== ENCOUNTER 2019-04-16 07:40 | Outpatient (CLI) | payer MEDICARE ==
[~2019-04-16] VITALS: Ht 185.4 cm; Wt 100.0 kg
--- NOTE | ~2019-04-16 | HEMODYNAMI ---
PATIENT:GINNY MAXWELL MEDICAL RECORD: [id number] : 44 LOCATION:DTannaCAT ADMISSION DATE: 04/16/19 Generatedon:04/16/201910:14 Patient name: GINNY MAXWELL Patient #: [id number] SSN: : 1940 Date of study: 04/16/2019 Page: Of Hemodynamic Procedure Report Patient Data Patient Demographics Procedure consent was obtained First Name: GINNY Gender: Male Last Name: ALISSA : 1940 Middle Initial: G Age: 78 year(s) Patient #: [id number] Race: Unknown Additional ID: [id number] Contact details Address: [address] [place] [address] State: [place] City: [place] Zip code: [address] Past Medical History Allergies Allergen Reaction Date Comments Reported Penicillins 07/31/2017 Penicillins 04/16/2019 Admission Admission Data Admission Date: 04/16/2019 Admission Time: 7:40 Weight (lbs.): 220.46 Weight (kg.): 100 Lab Results Lab Result Date: 04/16/2019 Lab Result Time: 0:00 Biochemistry Name Units Result Min Max BUN mg/dl 20 --(----)*- 7 18 Creatinine mg/dl 0.8 --(-*--)-- 0.6 1.3 eGFR ml/min 90 --(*---)-- 90 120 NONAFRICAN CBC Name Units Result Min Max Hematocrit % 49.5 --(--*-)-- 42 54 Hemoglobin g/dl 18 --(----)*- 13.5 17.5 Procedure Procedure Types Cath Procedure Diagnostic Procedure [facility] w/Coronaries Sedation Charges Moderate Sedation up to 15 minutes PCI Procedure Coronary Stent Coronary Stent Initial Coronary Stent Initial x2 Procedure Description Procedure Date Procedure Date: 04/16/2019 Procedure Start Time: 9:45 Procedure End Time: 10:11 Procedure Staff Name Function Az Kelly MD Performing Physician Shana Tao RT Monitor Berto Garcia RT Scrub Erica Young RT Scrub Lupe Good RN Nurse Procedure Data Cath Procedure Fluoroscopy Diagnostic fluoroscopy Total fluoroscopy Time: 8.5 time: 8.5 min min Diagnostic fluoroscopy Total fluoroscopy dose: dose: 1692 mGy 1692 mGy Contrast Material Contrast Material Type Amount (ml) Isovue 300 129 Entry Location Entry Primary Successful Side Size Upsize Upsize Entry Closure Patterson ccessful Closure Location (Fr) 1 (Fr) 2 (Fr) Remarks Device Remarks Radial Right 6 Fr Mechanical artery Short Compression Estimated blood loss: 10 ml Diagnostic catheters Device Type Used For End Catheter Placement DIAGNOSTIC [place] 110cm 5 Procedure Fr catheter (893120) Procedure Complications No complications Procedure Medications Medication Administration Route Dosage Oxygen etCO2 Nasal cannula 2 l/min Lidocaine 2% added to field 20 Heparin Flush Bag added to field 2 bags (1000units/500ml NS) 0.9% NaCl I.V. 100 ml/hr Versed I.V. 2 mg Fentanyl I.V. 100 mcg Radial Cocktail I.A. 1 syringe (Verapamil 2mg/Nitro 400mcg/Heparin 1500units) Heparin Bolus I.V. 4000 units Integrilin (Bolus I.V. 9 ml 2mg/ml) Versed I.V. 0.5 mg Fentanyl I.V. 25 mcg Plavix P.O. 600 mg Hemodynamics Rest HGB: 18 (g/dl) Heart Rate: 53 (bpm) Snapshots Pre Cath Intra NCS Post Cath Vital Signs Time Heart Resp SPO2 etCO2 NIBP (mmHg) Rhythm Pain Sedation Rate (ipm) (%) (mmHg) Status Level (bpm) 9:25:40 66 18 94 0 165/96(134) NSR 0 (11) 10(A) , No pain 9:29:54 62 17 96 39 160/89(141) NSR 0 (11) 10(A) , No pain 9:34:08 61 12 94 9.7 159/85(140) NSR 0 (11) 10(A) , No pain 9:38:20 61 19 94 30.7 138/85(123) NSR 0 (11) 10(A) , No pain 9:42:26 60 13 92 34.4 137/82(98) NSR 0 (11) 10(A) , No pain 9:46:34 57 15 94 42 143/77(120) NSR 0 (11) 9(A) , No pain 9:50:46 65 14 93 36.7 134/69(103) NSR 0 (11) 9(A) , No pain 9:54:53 62 14 94 38.2 124/75(101) NSR 0 (11) 9(A) , No pain 9:58:57 62 13 93 34.4 122/72(100) NSR 0 (11) 9(A) , No pain 10:03:01 66 10 93 36 136/74(109) NSR 0 (11) 9(A) , No pain 10:07:07 66 14 96 25.4 142/84(101) NSR 0 (11) 10(A) , No pain 10:11:13 70 10 98 33.7 137/86(124) NSR 0 (11) 10(A) , No pain Medications Time Medication Route Dose Verified Delivered Reason Not es Effectiveness by by 9:12:05 Oxygen etCO2 2 l/min Az Andrade used for Nasal Robin Good RN procedure cannula 9:12:12 Lidocaine 2% added 20ml Az Bernardo for local to vial Robin Kelly MD anesthetic field 9:12:21 Heparin Flush added 2 bags Az Bernardo used for Bag to Robin Kelly MD procedure (1000units/500ml field NS) 9:12:29 0.9% NaCl I.V. 100 Azannalisa Andrade Per physician ml/hr Robin Good RN 9:43:08 Versed I.V. 2 mg Az Andrade for sedation Robin Good RN 9:43:13 Fentanyl I.V. 100 mcg Az Andrade for sedation Robin Good RN 9:47:45 Radial Cocktail I.A. 1 Az Bernardo for (Verapamil syringe Robin Kelly MD vasodilation 2mg/Nitro 400mcg/Heparin 1500units) 9:53:06 Heparin Bolus I.V. 4000 Az Andrade for beverly ified units Robin Good RN anticoagulation with dr kelly 9:56:15 Integrilin I.V. 9 ml Az Andrade Per physician was reyes 1 (Bolus 2mg/ml) Robin Good RN ml of vial 9:59:13 Versed I.V. 0.5 mg Az Andrade for sedation Robin Good RN 9:59:18 Fentanyl I.V. 25 mcg Az limon sedation Robin Good RN 10:10:26 Plavix P.O. 600 mg Az Good RN antiplatelet therapy Procedure Log Time Note 9:10:21 Berto Garcia RT(R) sent for patient. Start room use. 9:10:57 Signed procedure consent form obtained from patient. 9:10:59 Diagnostic Cath status Elective 9:11:00 Time tracking: Regular hours (M-F 7:00 - 5:00) 9:11:04 Plan of Care:Hemodynamics will remain stable., Cardiac rhythm will remain stable., Comfort level will be maintained., Respiratory function will remain adequate., Patient/ family verbilizes understanding of procedure., Procedure tolerated without complication., Recovers from procedure without complications.. 9:12:05 Oxygen 2 l/min etCO2 Nasal cannula was administered by Lupe Good RN; used for procedure; 9:12:12 Lidocaine 2% 20ml vial added to field was administered by Az Kelly MD; for local anesthetic; 9:12:21 Heparin Flush Bag (1000units/500ml NS) 2 bags added to field was administered by Az Kelly MD; used for procedure; 9:12:29 0.9% NaCl 100 ml/hr I.V. was administered by Lupe Good RN; Per physician; 9:13:29 Patient Weight : 220.46 lbs 9:13:47 Patient allergic to Penicillins 9:14:22 Lab Result : BUN 20 mg/dl 9:14:22 Lab Result : eGFR NONAFRICAN 90 ml/min 9:14:22 Lab Result : Creatinine 0.8 mg/dl 9:14:22 Lab Result : Hematocrit 49.5 % 9:14:22 Lab Result : Hemoglobin 18 g/dl 9:16:28 Patient received from Pre/Post Procedure Room to CCL 1 Alert and oriented. Tansferred to table in Supine position. 9:16:29 Warm blankets applied, and brie hugger turned on for patient comfort. 9:16:30 Correct patient and procedure confirmed by team. 9:16:31 ECG and BP/O2 sat monitors applied to patient. 9:20:33 Pt reports that he took his plavix last on friday04/13/19. 9:24:37 Vital chart was started 9:24:39 Baseline sample Acquired. 9:24:43 Rhythm: sinus rhythm 9:24:44 Full Disclosure recording started 9:24:54 H&P Date Dictated: 04/05/2019 Within 30 days and on chart., H&P Addendum completed by physician on day of procedure. (MUST COMPLETE FOR ALL OUTPATIENTS). 9:24:55 Pre-procedure instructions explained to patient. 9:24:59 Pre-op teaching completed and patient verbalized understanding. 9:25:01 Family in patients room. 9:25:02 Patient NPO since Midnight. 9:25:03 Is patient on blood thinner?Yes 9:25:17 LAST DOSE TAKEN ON FRIDAY 9:25:18 Patient diabetic? No. 9:26:41 Previous problem with sedation/anesthesia? No ? 9:26:43 Snore? Yes 9:26:44 Sleep apnea? No 9:26:46 Deviated septum? No 9:26:47 Opens mouth fully? Yes 9:26:48 Sticks out tongue? Yes 9:26:50 Airway obstruction? No \ 9:26:52 Dentures? No ? 9:26:55 Pre procedure: right dorsailis pedis pulse 1+ Palpable, but thready & weak; easily obliterated 9:26:57 Modified Edward's test Ulnar < 7 seconds 9:26:59 Patient pain scale 0/10 ?. 9:27:04 IV patent on arrival in left antecubital with 0.9% NaCl at KVO. 9:27:06 Lab results completed and on chart. 9:27:09 Right Radial & Right Groin area was prepped with chlora-prep and draped in sterile fashion 9:27:14 Alarms reviewed by R. N. 9:27:14 Sharps counted by scrub and verified by R.N. 9:27:17 Use device set Radial Dx or PCI 9:27:18 ACIST Syringe (17354) opened to sterile field. 9:27:20 Medline Cath Pack ([id number]) opened to sterile field. 9:27:20 Bag Decanter (2002) opened to sterile field. 9:27:20 ACIST Hand Control (07064) opened to sterile field. 9:27:21 ACIST Manifold (23819) opened to sterile field. 9:27:21 Tegaderm 4 x 4 (1626W) opened to sterile field. 9:27:26 MBrace Wrist Support ([id number]) opened to sterile field. 9:27:27 EMERALD Guide Wire (818-458) opened to sterile field. 9:27:28 SHEATH 6FR RAIN (0593981) opened to sterile field. 9:42:27 Zero performed for pressure channel P1 9:42:48 --------ALL STOP TIME OUT------ 9:42:49 Final Timeout: patient, procedure, and site verified with staff and physician. All members of the team are in agreement. 9:42:50 Right Radial & Right Groin site verified by team. 9:42:54 Fire Safety Assessment: A--An alcohol-based skin anteseptic being used preoperatively., C--Open oxygen or nitrous oxide is being used., D--An ESU, laser, or fiber-optic light is being used. 9:42:56 Physical assessment completed. ASA score P 2 - A patient with mild systemic disease as per Az Kelly MD. 9:42:58 1) 90+ Normal kidney functon but urine findings or structural abnormalities or genetic trait point to kidney disease. 9:43:03 Maximum allowable contrast does (3.7 X eGFR X 0.75)250 ml. 9:43:07 Sedation plan: IV Moderate Sedation Medication:Versed, Fentanyl 9:43:08 Versed 2 mg I.V. was administered by Lupe Good RN; for sedation; 9:43:13 Fentanyl 100 mcg I.V. was administered by Lupe Good RN; for sedation; 9:44:59 Procedure started. 9:45:04 Local anesthetic to right radial artery with Lidocaine 2% by Az Kelly MD.INITIAL ACCESS ONLY 9:46:50 A 6 Fr Short sheath was inserted into the Right Radial artery 9:47:32 A DIAGNOSTIC [place] 110cm 5 Fr catheter ([id number]) was advanced over the wire and used for Procedure. 9:47:45 Radial Cocktail (Verapamil 2mg/Nitro 400mcg/Heparin 1500units) 1 syringe I.A. was administered by Az Kelly MD; for vasodilation; 9:48:27 LV gram done using DAVIS 9:48:30 Injector settings: Ml/sec: 5, Volume: 15, 9:49:10 EF : 50 % 9:51:29 LCA angiography performed. 9:51:30 RCA angiography performed. 9:51:31 Catheter exchanged over wire. 9:51:41 GUIDE 6FR XBLAD 3.5 catheter ([id number]) opened to sterile field. 9:52:22 CHOICE PT Extra Support 182cm wire ([id number]) opened to sterile field. 9:52:22 INFLATOR Merit BasixCompak (LF4801) opened to sterile field. 9:52:31 6 Fr XBLAD 3.5 guide catheter was inserted over the wire 9:53:06 Heparin Bolus 4000 units I.V. was administered by Lupe Good RN; for anticoagulation; verified with dr kelly 9:54:06 CHOICE ES 182 wire advanced. 9:54:42 WIRE ADVANCED ACROSS THE RAMUS 9:55:51 Inflate balloon Inflation number: 1 A EUPHORA 2.0 x 20 Balloon ([id number]) was prepped and advanced across the Ramus , then inflated to 9 ROXANA for 0:00 (min:sec) . 9:56:03 Inflation number: 2 The EUPHORA 2.0 x 20 Balloon ([id number]) was reinflated across the Ramus , to 11 ROXANA for 0:10 (min:sec) . 9:56:15 Integrilin (Bolus 2mg/ml) 9 ml I.V. was administered by Lupe Good RN; Per physician; wasted 1 ml of vial 9:56:17 Inflation number: 3 The EUPHORA 2.0 x 20 Balloon ([id number]) was reinflated across the Ramus , to 13 ROXANA for 0:10 (min:sec) . 9:56:25 Inflation number: 4 The EUPHORA 2.0 x 20 Balloon ([id number]) was reinflated across the Ramus , to 13 ROXANA for 0:00 (min:sec) . 9:56:37 Inflation number: 5 The EUPHORA 2.0 x 20 Balloon ([id number]) was reinflated across the Ramus , to 15 ROXANA for 0:00 (min:sec) . 9:58:28 Balloon removed over the wire. 9:59:13 Versed 0.5 mg I.V. was administered by Lupe Good RN; for sedation; 9:59:18 Fentanyl 25 mcg I.V. was administered by Lupe Good RN; for sedation; 10:01:19 Place stent Inflation Number: 6 A ANAND RX 2.0 x 22 stent ([id number]) was prepped and advanced across the Ramus . The stent was deployed at 13 ROXANA for 0:00 (min:sec) . 10:01:44 Stent catheter was removed intact over wire. 10:01:49 Wire redirected to CIRC. 10:04:01 Place stent Inflation Number: 1 A ANAND RX 3.0 x 12 stent ([id number]) was prepped and advanced across the Mid CX . The stent was deployed at 17 ROXANA for 0:10 (min:sec) . 10:04:16 Inflation number: 2 The stent balloon was then re-inflated across the Mid CX to 17 ROXANA for 0:00 (min:sec) . 10:04:32 Stent catheter was removed intact over wire. 10:04:33 Wire removed. 10:04:34 Guide catheter removed. 10:04:37 GUIDE 6FR AR 2.0 catheter ([id number]) opened to sterile field. 10:05:41 6 Fr AR 2 guide catheter was inserted over the wire 10:06:28 CHOICE ES 182 wire advanced. 10:06:29 Wire advanced across lesion. 10:07:42 Place stent Inflation Number: 1 A ANAND RX 2.0 x 12 stent ([id number]) was prepped and advanced across the Dist RCA . The stent was deployed at 13 ROXANA for 0:00 (min:sec) . 10:07:45 Stent catheter was removed intact over wire. 10:07:45 Wire removed. 10:07:46 Guide catheter removed. 10:07:48 TR BAND Standard ([id number]) opened to sterile field. 10:07:52 Procedure ended.(Physican Out) 10:08:05 Sheath removed intact; hemostasis achieved with Mechanical Compression to the Right Radial artery. 10:08:11 Flurop Dose total: 1692 10:08:11 Fluoroscopy dose: 1692 mGy 10:08:19 Fluoroscopy time 08.50 minutes. 10:08:23 Contrast amount:Isovue 300 129ml. 10:08:24 Sharps counted by scrub and verified by R.N. 10:09:49 TR band inflated with 11cc of air. 10:10:00 Post-procedure physical assessment completed. ASA score P 2 - A patient with mild systemic disease as per Az Kelly MD. 10:10:03 Post procedure rhythm: sinus rhythm 10:10:05 Estimated blood loss: 10 ml 10:10:07 Post procedure instruction explained to patient.Patient verbalizes understanding. 10:10:07 Patient needs reinforcement of post procedure teaching. 10:10:26 Plavix 600 mg P.O. was administered by Lupe Good RN; for antiplatelet therapy; 10:11:00 Procedure type changed to Cath procedure, Diagnostic procedure, LHC, LHC w/Coronaries, Sedation Charges, Moderate Sedation up to 15 minutes, PCI procedure, Coronary Stent, Coronary Stent Initial, Coronary Stent Initial x2 10:11:34 Procedure and supply charges have been captured, reviewed, submitted and are correct. 10:11:35 Vital chart was stopped 10:11:38 Procedure Complication : No complications 10:11:41 See physician's report for complete and final results. 10:11:49 Report given to Pre/Post Procedure Room. 10:11:52 Patient transfered to Pre/Post Procedure Room with Bed. 10:11:55 Procedure ended. 10:11:55 Full Disclosure recording stopped 10:12:00 End room use (Document Last) Intervention Summary Intervention Notes Time ActionType Lesion and Equipment Used Action# Pressure Duration Attributes 9:55:51 Inflate Ramus EUPHORA 2.0 x 1 9 00:00 balloon 20 Balloon ([id number]) 9:56:03 Reinflate Ramus EUPHORA 2.0 x 2 11 00:10 balloon 20 Balloon ([id number]) 9:56:17 Reinflate Ramus EUPHORA 2.0 x 3 13 00:10 balloon 20 Balloon ([id number]) 9:56:25 Reinflate Ramus EUPHORA 2.0 x 4 13 00:00 balloon 20 Balloon ([id number]) 9:56:37 Reinflate Ramus EUPHORA 2.0 x 5 15 00:00 balloon 20 Balloon ([id number]) 10:01:19 Place stent Ramus ANAND RX 2.0 x 6 13 00:00 22 stent ([id number]) 10:04:01 Place stent Mid CX ANAND RX 3.0 x 1 17 00:10 12 stent ([id number]) 10:04:16 Reinflate Mid CX ANAND RX 3.0 x 2 17 00:00 stent 12 stent balloon ([id number]) 10:07:42 Place stent Dist RCA ANAND RX 2.0 x 1 13 00:00 12 stent ([id number]) Device Usage Item Name Manufacture Quantity Catalog Number Hospital Part Current M inimal Lot# / Charge Number Stock Stock Serial# Code ACIST Syringe Acist 1 35357 707886 711936 692291 2 0 (94661) Medical Systems Inc Medline Cath Medline 1 [id number] 905535 64247 992523 5 Pack ([id number]) Bag Decanter Microtek 1 2001S 320527 00058 812070 5 (2001S) Medical Inc. ACIST Hand Acist 1 89965 068493 427407 629093 5 Control Medical (42497) Systems Inc ACIST Manifold Acist 1 22823 617043 222901 214438 5 (21711) Medical Systems Inc Tegaderm 4 x 4 3M 1 1626W 536346 799505 516734 5 (1626W) MBrace Wrist Advanced 1 140-0250-00 629161 67454 393752 5 Support Vascular (188995687) Dynamics EMERALD Guide Cardinal 1 502-455 920707 625219 850002 5 Wire (502-455) Health SHEATH 6FR Cardinal 1 9626183 171279 6648017 666895 5 RAIN (4870137) Health DIAGNOSTIC Terumo 1 40-0543 746546 178800 083695 5 [place] 110cm 5 Fr catheter (478905) GUIDE 6FR Cardinal 1 75083223 488415 131441 325272 1 0 XBLAD 3.5 Health catheter (76142780) CHOICE PT [place] 1 [id number] 735859 159475 511485 5 Extra Support Scientific 182cm wire ([id number]) INFLATOR Merit Merit 1 HE3225 276339 097998 437054 1 5 MeeGenius (HY9228) EUPHORA 2.0 x Medtronic 1 [id number] 031514 529360 266213 5 [id number] 20 Balloon ([id number]) ANAND RX 2.0 x Medtronic 1 [id number] 490077 4651238 374567 5 [id number] 22 stent ([id number]) ANAND RX 3.0 x Medtronic 1 [id number] 500765 7750762 998400 5 [id number] 12 stent ([id number]) GUIDE 6FR AR Medtronic 1 [id number] 821797 73806 617341 1 2.0 catheter (CP0KT26) ANAND RX 2.0 x Medtronic 1 [id number] 502211 8206976 170823 5 [id number] 12 stent ([id number]) TR BAND Terumo 1 [id number] 279464 871246 654572 4 0 Standard ([id number]) Signature Audit [place] Stage Time Signature Unsigned Intra-Procedure 04/16/2019 Shana Tao 10:14:22 AM RT(R) Signatures Performing Physician : Signature : Az Kelly MD Date : Time : Monitor : Shana Tao Signature : RT Date : Time : Nurse : Lupe Good RN Signature : Date : Time : [facility] [address] [id number]
[2019-04-16 08:19] VITALS: BP 188/96; Ht 185.4 cm; Wt 100.0 kg
[2019-04-16 08:32] LABS: BASOPHILS 0.3 % (0-2); EOSINOPHILS 4.7 % (0-7); HEMATOCRIT 49.5 % (42.0-54.0); IMMATURE GRANULOCYTES 0.7 % (0-5); LYMPHOCYTES 24.3 % (15-50); MCH 32.5 pg (26.0-34.0); MCHC 36.4 g/dL (31.0-37.0); MCV 89.5 fL (80.0-100.0); MEAN PLATELET VOLUME 10.7 fL (7.4-10.4); MONOCYTES 11.1 % (2-11); NEUTROPHILS 58.9 % (40-80); PLATELET COUNT 338 10x3/uL (130-400); RBC 5.53 10x6/uL (4.20-6.10); RDW 12.8 % (11.5-14.5)
[2019-04-16 09:02] LABS: CALC OSMOLALITY 281 mosm/kg (275-300); CALCIUM 8.8 mg/dL (8.5-10.1); CARBON DIOXIDE 26.3 mmol/L (21.0-32.0); CHLORIDE - SERUM 106 mmol/L (98-107); CREATININE - SERUM 0.8 mg/dL (0.6-1.3); GLUCOSE 97 mg/dL (74-106); POTASSIUM - SERUM 4.9 mmol/L (3.5-5.1); SODIUM 140 mmol/L (136-145); UREA NITROGEN 20 mg/dL (7-18); eGFR NON AFRICAN AMERICAN > 90 mL/min (90-120)
--- NOTE | 2019-04-16 10:25 | NUR ---
PATIENT ARRIVED TO ROOM 7, PLACED ON CM. VSS. RIGHT TR BAND IN PLACE, NO S/S OF BLEEDING OR HEMATOMA.
--- NOTE | 2019-04-16 10:40 | NUR ---
PATIENT RESTING, VSS ON ROOM AIR. RIGHT TR BAND IN PLACE, NO S/S OF BLEEDING OR HEMATOMA. NO C/O PAIN, NUMBNESS, OR TINGLING. PRESENT AT BEDSIDE.
--- NOTE | 2019-04-16 11:10 | NUR ---
PATIENT AWAKE, DRINKING WATER. VSS ON ROOM AIR. RIGHT TR BAND IN PLACE, NO S/S OF BLEEDING OR HEMATOMA. NO C/O PAIN, NUMBNESS, OR TINGLING. PRESENT AT BEDSIDE.
[2019-04-16] MEDS ORDERED: PRAVACHOL40 MG PO (11:27)
--- NOTE | 2019-04-16 11:40 | NUR ---
PATIENT GIVEN TURKEY SANDWICH PER REQUEST, HEAD OF BED AT 60 DEGREES. RIGHT TR BAND IN PLACE, NO S/S OF BLEEDING OR HEMATOMA. VSS ON ROOM AIR. NO N/V.
--- NOTE | 2019-04-16 12:10 | NUR ---
PATIENT AWAKE, FINISHED WITH TURKEY SANDWICH, NO N/V. VSS ON ROOM AIR. PRESENT AT BEDSIDE. RIGHT TR BAND IN PLACE, NO S/S OF BLEEDING OR HEMATOMA. NO C/O PAIN, NUMBNESS, OR TINGLING.
--- NOTE | 2019-04-16 12:40 | NUR ---
PATIENT RESTING, VSS ON ROOM AIR. RIGHT TR BAND IN PLACE, NO S/S OF BLEEDING OR HEMATOMA. NO C/O PAIN, NUMBNESS, OR TINGLING. NO N/V. PRESENT AT BEDSIDE.
--- NOTE | 2019-04-16 13:10 | NUR ---
BEGIN AIR REMOVAL PROTOCOL FOR TR BAND, 3CC OF AIR REMOVED WITH SMALL AMOUNT OF BLEEDING NOTED. 3CC OF AIR REPLACED IN TR BAND WITH NO FURTHER S/S OF BLEEDING OR HEMATOMA. VSS ON ROOM AIR.
--- NOTE | 2019-04-16 13:40 | NUR ---
3CC OF AIR REMOVED FROM TR BAND WITH NO S/S OF BLEEDING OR HEMATOMA. NO C/O PAIN, NUMBNESS, OR TINGLING. VSS ON ROOM AIR. PATIENT INTERMITTENTLY RESTING.
--- NOTE | 2019-04-16 14:10 | NUR ---
4CC OF AIR REMOVED FROM TR BAND, NO S/S OF BLEEDING OR HEMATOMA. VSS ON ROOM AIR. NO C/O PAIN, NUMBNESS, OR TINGLING. NO N/V. PRESENT AT BEDSIDE.
--- NOTE | 2019-04-16 14:40 | NUR ---
IV REMOVED. REMAINING AIR REMOVED FROM TR BAND, NO S/S OF BLEEDING OR HEMATOMA. DRESSING APPLIED IS CDI. PATIENT VOIDED WITHOUT DIFFICULTY. VSS ON ROOM AIR.
--- NOTE | 2019-04-16 15:10 | NUR ---
EDUCATION REGARDING DISCHARGE INSTRUCTIONS AND MEDICATION COMPLIANCE GIVEN TO PATIENT AND SPOUSE, BOTH VOICE UNDERSTANDING. PATIENT TRANSPORTED VIA WHEELCHAIR TO CAR WITH SPOUSE DRIVING, ALL BELONGINGS WITH PATIENT.
--- NOTE | 2019-04-16 16:51 | OP ---
PATIENT NAME: GINNY MAXWELL MEDICAL RECORD: [id number] :44 LOCATION:D.CAT ADMISSION DATE: SURGEON: ISAK NEWMAN MD DATE OF OPERATION: 04/16/2019 PROCEDURES: 1. PTCA stent RCA. 2. PTCA stent left circumflex. 3. PTCA stent ramus intermedius. 4. Left heart catheterization. 5. Selective coronary angiography. 6. Left ventriculogram. INDICATION: Angina, coronary artery disease, and high risk abnormal nuclear stress test. PROCEDURE IN DETAIL: After informed consent was obtained and after a detailed description of risks, benefits as well as alternative therapies, the patient elected to proceed with angiogram and angioplasty. The right radial area was prepped and draped in normal sterile fashion. Right radial artery was cannulated via modified Seldinger technique with placement of 6-Vietnamese sheath. All catheters exchanged through this sheath. FINDINGS: Left ventriculogram was performed in standard 30-degree DAVIS view reveals good cardiac wall motion, ejection fraction is 60%. SELECTIVE CORONARY ANGIOGRAPHY: 1. Left main is with no significant angiographic disease. 2. Left anterior descending has previously placed stents, these are widely patent. The very distal LAD has 80% to 90% stenosis times 3. 3. The left circumflex, ramus intermedius has 99% stenosis. 4. The left circumflex has previously placed stents with 90% in-stent restenosis. 5. The right coronary artery has previously placed stents that are widely patent; however, there is 95% stenosis after this in the distal RCA. PTCA STENT OF THE RCA: The stent used was a 2.0 x 12 mm Javid. Result was 0% residual stenosis. PTCA STENT OF THE LEFT CIRCUMFLEX: The stent used was a 3.0 x 12 mm Javid. Result was 0% residual stenosis. PTCA STENT OF THE RAMUS INTERMEDIUS: The stent used was a 2.0 x 22 mm [place]. Result was 0% residual stenosis. OVERALL IMPRESSION: Successful percutaneous transluminal coronary angioplasty stent of the left circumflex, ramus intermedius and RCA going from 90% to 99% stenosis to 0% residual. TRANSINT:[id number] Voice Confirmation ID: [id number] DOCUMENT ID: [id number] OPERATIVE REPORT [id number] MEKADALILAGINNY JEFFREY MD at 4559 CC: [id number] DICTATION DATE: 04/16/19 1013 SQL CONSULTANT: 04/16/19 1022 DEP CLI 04/16/19 [place] [id number] [place] [id number]
== END 2019-04-16 15:10 ==
LOC: D.CATH 07:40
PROVIDERS: ATTEND Internal Medicine Interventional Cardiology
DX: I25.119 Atherosclerotic heart disease of native coronary artery with unspecified angina pectoris (principal); R94.39 Abnormal result of other cardiovascular function study; Z01.812 Encounter for preprocedural laboratory examination
CPT/HCPCS: C9600 ×3; 93458

== ENCOUNTER 2019-06-10 11:23 | Outpatient (CLI) | payer MEDICARE ==
[~2019-06-10] VITALS: Ht 185.4 cm; Wt 94.1 kg
--- NOTE | ~2019-06-10 | HEMODYNAMI ---
PATIENT:GINNY MAXWELL MEDICAL RECORD: [id number] : 44 LOCATION:[facility] D2117 ADMISSION DATE: 06/10/19 Generatedon:06/10/201916:15 Patient name: GINNY MAXWELL Patient #: [id number] SSN: : 1940 Date of study: 06/10/2019 Page: Of Hemodynamic Procedure Report Patient Data Patient Demographics Procedure consent was obtained First Name: GINNY Gender: Male Last Name: ALISSA : 1940 [facility] Initial: G Age: 78 year(s) Patient #: [id number] Race: Unknown Additional ID: [id number] Contact details Address: [address] [place] [address] State: [place] City: [place] Zip code: [address] Past Medical History Allergies Allergen Reaction Date Comments Reported Penicillins 07/31/2017 Penicillins 04/16/2019 Penicillins 06/10/2019 Admission Admission Data Admission Date: 06/10/2019 Admission Time: 12:29 Arrival Date: 06/10/2019 Arrival Time: 0:00 Room #: D2117 Insurance Payor: Medicare [facility] #: [id number] Height (in.): 73 BSA: 2.23 (m2) Height (cm.): 185.42 BMI: 28.8 (kg/m2) Weight (lbs.): 218.26 Weight (kg.): 99 Lab Results Lab Result Date: 06/10/2019 Lab Result Time: 1:00 Biochemistry Name Units Result Min Max BUN mg/dl 15 --(--*-)-- 7 18 Creatinine mg/dl 0.9 --(-*--)-- 0.6 1.3 eGFR ml/min 87 -*(----)-- 90 120 NONAFRICAN Procedure Procedure Types Cath Procedure Diagnostic Procedure C [facility] w/Coronaries PCI Procedure Coronary Stent Coronary Stent Initial Procedure Description Procedure Date Procedure Date: 06/10/2019 Procedure Start Time: 15:53 Procedure End Time: 16:12 Procedure Staff Name Function Az Kelly MD Performing Physician Shana Tao RT Monitor Erica Kent RT Scrub Eugenia Chung RN Nurse Berto Garcia RT Advisory Application Developer Procedure Data Cath Procedure Fluoroscopy Diagnostic fluoroscopy Total fluoroscopy Time: 3.5 time: 3.5 min min Diagnostic fluoroscopy Total fluoroscopy dose: dose: 1037 mGy 1037 mGy Contrast Material Contrast Material Type Amount (ml) Isovue 300 101 Entry Location Entry Primary Successful Side Size Upsize Upsize Entry Closure Patterson ccessful Closure Location (Fr) 1 (Fr) 2 (Fr) Remarks Device Remarks Radial Right 6 Fr Mechanical artery Short Compression Estimated blood loss: 10 ml Diagnostic catheters Device Type Used For End Catheter Placement DIAGNOSTIC Universal 110cm 5 Procedure Fr catheter ([id number]) Procedure Complications No complications Procedure Medications Medication Administration Route Dosage 0.9% NaCl I.V. 100 ml/hr Oxygen etCO2 Nasal cannula 2 l/min Lidocaine 2% added to field 20 Heparin Flush Bag added to field 2 bags (1000units/500ml NS) Radial Cocktail added to field 1 syringe (Verapamil 2mg/Nitro 400mcg/Heparin 1500units) Versed I.V. 2 mg Fentanyl I.V. 100 mcg Heparin Bolus I.V. 4000 units Integrilin (Bolus I.V. 9 ml 2mg/ml) Integrilin (Bolus wasted 1 ml 2mg/ml) Integrilin Drip I.V. drip 16 ml/hr (75mg/100ml) Effient P.O. 60 mg Hemodynamics Rest BSA: 2.23 (m2) O2 Consumption: Estimated: 252.47 (ml/min) O2 Consumption indexed : Estimated:113.22 (ml/min/m) Heart Rate: 66 (bpm) Snapshots Pre Cath Intra NCS Post Cath Vital Signs Time Heart Resp SPO2 etCO2 NIBP (mmHg) Rhythm Pain Sedation Rate (ipm) (%) (mmHg) Status Level (bpm) 15:41:45 60 10 97 41.3 143/81(126) NSR 0 (11) 10(A) , No pain 15:46:07 70 12 98 13.5 151/77(122) NSR 0 (11) 10(A) , No pain 15:50:26 71 13 97 31.5 134/77(109) NSR 0 (11) 10(A) , No pain 15:54:45 68 11 97 14.2 130/74(110) NSR 0 (11) 9(A) , No pain 15:59:01 79 12 95 33.8 126/70(103) NSR 0 (11) 9(A) , No pain 16:03:15 74 12 95 29.2 129/74(99) NSR 0 (11) 9(A) , No pain 16:07:36 76 12 98 12 123/67(97) NSR 0 (11) 9(A) , No pain 16:11:54 74 12 98 36.8 128/70(112) NSR 0 (11) 10(A) , No pain Medications Time Medication Route Dose Verified Delivered Reason Not es Effectiveness by by 15:40:41 0.9% NaCl I.V. 100 Az Eugenia used for ml/hr Robin Chung student development specialist 15:40:48 Oxygen etCO2 2 l/min Az Eugenia used for Nasal Robin Chung procedure cannula RN 15:40:53 Lidocaine 2% added 20ml Az Az for local to vial Robin Kelly MD anesthetic field 15:40:58 Heparin Flush added 2 bags Az Az used for Bag to Robin Kelly MD procedure (1000units/500ml field NS) 15:41:02 Radial Cocktail added 1 Az Az used for (Verapamil to syringe Robin Kelly MD procedure 2mg/Nitro field 400mcg/Heparin 1500units) 15:52:03 Versed I.V. 2 mg Az Eugenia for sedation Robin Chung RN 15:52:11 Fentanyl I.V. 100 mcg Az Eugenia for sedation Robin Chung RN 16:00:36 Heparin Bolus I.V. 4000 Az Eugenia for beverly ified units Robin Chung anticoagulation with Dr. GEOFFREY Kelly 16:01:06 Integrilin wasted 1 ml Az Eugenia for (Bolus 2mg/ml) Robin Chung antiplatelet RN therapy 16:01:52 Integrilin I.V. 9 ml Az Eugenia for (Bolus 2mg/ml) Robin Chung antiplatelet RN therapy 16:03:16 Integrilin Drip I.V. 16 Az Eugenia for (75mg/100ml) drip ml/hr Robin Chung antiplatelet RN therapy 16:13:17 Effient P.O. 60 mg Az Chung antiplatelet RN therapy Procedure Log Time Note :: Time tracking: Regular hours (M-F 7:00 - 5:00) 15:15:26 Plan of Care:Hemodynamics will remain stable., Cardiac rhythm will remain stable., Comfort level will be maintained., Respiratory function will remain adequate., Patient/ family verbilizes understanding of procedure., Procedure tolerated without complication., Recovers from procedure without complications.. 15:15:49 Berto Garcia RT(R) sent for patient. Start room use. 15:20:20 Signed procedure consent form obtained from patient. 15::49 Procedure Status Urgent Heart Cath (IP). 15:21:20 Patient allergic to Penicillins 15:22:00 Lab Result : Hemoglobin 16.9 g/dl 15:22:00 Lab Result : Hematocrit 47 % 15::55 Lab Result : BUN 15 mg/dl 15::55 Lab Result : Creatinine 0.9 mg/dl 15::55 Lab Result : eGFR NONAFRICAN 87 ml/min 15:24:02 Patient Weight : 218.26 lbs 15:24:06 Patient Height : 73 inches 15:24:28 Arrival Date: 06/10/2019 12:00:00 AM 15:25:01 Insurance Payor : Medicare 15:30:24 Patient received from Med II to CCL 1 Alert and oriented. Tansferred to table in Supine position. 15:30:25 Warm blankets applied, and brie hugger turned on for patient comfort. 15:30:25 Correct patient and procedure confirmed by team. 15:30:26 ECG and BP/O2 sat monitors applied to patient. 15:40:32 Vital chart was started 15:40:41 0.9% NaCl 100 ml/hr I.V. was administered by Eugenia Chung RN; used for procedure; 15:40:48 Oxygen 2 l/min etCO2 Nasal cannula was administered by Eugenia Chung RN; used for procedure; 15:40:53 Lidocaine 2% 20ml vial added to field was administered by Az Kelly MD; for local anesthetic; 15:40:58 Heparin Flush Bag (1000units/500ml NS) 2 bags added to field was administered by Az Kelly MD; used for procedure; 15:41:02 Radial Cocktail (Verapamil 2mg/Nitro 400mcg/Heparin 1500units) 1 syringe added to field was administered by Az Kelly MD; used for procedure; 15:41:18 Baseline sample Acquired. 15:41:20 Rhythm: sinus rhythm 15:41:21 Full Disclosure recording started 15:41:22 Pre-procedure instructions explained to patient. 15:41:22 Pre-op teaching completed and patient verbalized understanding. 15:41:41 H&P Date Dictated: 06/10/2019 Within 30 days and on chart.. 15:41:42 Family in patients room. 15:41:47 Is patient on blood thinner?Yes 15:41:50 ACC The patient was administered the following blood thiners within the last 24 hours: ACCPlavix 15:41:52 Patient diabetic? No. 15:42:38 Previous problem with sedation/anesthesia? No ? 15:42:39 Snore? Yes 15:42:40 Sleep apnea? No 15:42:40 Deviated septum? No 15:42:41 Opens mouth fully? Yes 15:42:42 Sticks out tongue? Yes 15:42:43 Airway obstruction? No ? 15:42:45 Dentures? No ? 15:42:47 Modified Edward's test Ulnar < 7 seconds 15:42:51 Pre procedure: right dorsailis pedis pulse 1+ Palpable, but thready & weak; easily obliterated 15:42:57 IV patent on arrival in left forearm with 0.9% NaCl at O. 15:43:00 Lab results completed and on chart. 15:43:04 Right Radial & Right Groin area was prepped with chlora-prep and draped in sterile fashion 15:43:05 Alarms reviewed by R. N. 15:43:05 Sharps counted by scrub and verified by R.N. 15:46:19 Use device set Radial Dx or PCI 15:46:20 ACIST Syringe (89961) opened to sterile field. 15:46:22 Bag Decanter () opened to sterile field. 15:46:22 ACIST Hand Control (93529) opened to sterile field. 15:46:22 ACIST Manifold (74773) opened to sterile field. 15:46:23 Tegaderm 4 x 4 (1626W) opened to sterile field. 15:46:24 Medline Cath Pack ([id number]) opened to sterile field. 15:46:26 MBrace Wrist Support ([id number]) opened to sterile field. 15:46:27 EMERALD Guide Wire (233-306) opened to sterile field. 15:46:28 SHEATH 6FR RAIN (1305601) opened to sterile field. 15:49:38 Zero performed for pressure channel P1 15:50:23 --------ALL STOP TIME OUT------ 15:50:24 Final Timeout: patient, procedure, and site verified with staff and physician. All members of the team are in agreement. 15:50:26 Right Radial & Right Groin site verified by team. 15:50:28 Fire Safety Assessment: A--An alcohol-based skin anteseptic being used preoperatively., C--Open oxygen or nitrous oxide is being used., D--An ESU, laser, or fiber-optic light is being used. 15:50:32 Physical assessment completed. ASA score P 2 - A patient with mild systemic disease as per Az Kelly MD. 15:51:09 2) 60-89 Mildly reduced kidney function, and other findings (as for stage 1) point to kidney disease. 15:51:14 Maximum allowable contrast dose (3.7 X eGFR X 0.75)243 ml. 15:51:17 Sedation plan: IV Moderate Sedation Medication:Versed, Fentanyl 15:52:03 Versed 2 mg I.V. was administered by Eugenia Chung RN; for sedation; 15:52:11 Fentanyl 100 mcg I.V. was administered by Eugenia Chung RN; for sedation; 15:53:34 Procedure started. 15:53:53 Local anesthetic to right radial artery with Lidocaine 2% by Az Kelly MD.INITIAL ACCESS ONLY 15:54:26 A 6 Fr Short sheath was inserted into the Right Radial artery 15:54:48 A DIAGNOSTIC Universal 110cm 5 Fr catheter (609923) was advanced over the wire and used for Procedure. 15:55:55 LV gram done using DAVIS 15:55:57 Injector settings: Ml/sec: 5, Volume: 15, 15:56:12 EF : 60 % 15:58:34 RCA angiography performed. 15:58:35 LCA angiography performed. 15:58:36 Catheter exchanged over wire. 15:59:16 CHOICE PT Extra Support 182cm wire ([id number]) opened to sterile field. 15:59:17 INFLATOR Merit BasixCompak (WS0698) opened to sterile field. 15:59:17 GUIDE 6FR XBLAD 3.5 catheter ([id number]) opened to sterile field. 16:00:36 Heparin Bolus 4000 units I.V. was administered by Eugenia Chung RN; for anticoagulation; verified with Dr. Kelly 16:00:44 6 Fr XBLAD 3.5 guide catheter was inserted over the wire 16:01:06 Integrilin (Bolus 2mg/ml) 1 ml wasted was administered by Eugenia Chung RN; for antiplatelet therapy; 16:01:47 CHOICE ES 182 wire advanced. 16:01:52 Integrilin (Bolus 2mg/ml) 9 ml I.V. was administered by Eugenia Chung RN; for antiplatelet therapy; 16:02:05 Wire advanced across lesion. 16:02:47 Pre PCI Site: [place] mCirc has 95 WITH CLOT% stenosis. 16:03:16 Integrilin Drip (75mg/100ml) 16 ml/hr I.V. drip was administered by Eugenia Chung RN; for antiplatelet therapy; 16:03:31 Place stent Inflation Number: 1 A ANAND RX 2.5 x 12 stent ([id number]) was prepped and advanced across the Mid CX . The stent was deployed at 13 ROXANA for 0:00 (min:sec) . 16:03:48 Inflation number: 2 The stent balloon was then re-inflated across the Mid CX to 21 ROXANA for 0:00 (min:sec) . 16:04:20 Inflation number: 3 The stent balloon was then re-inflated across the Mid CX to 21 ROXANA for 0:00 (min:sec) . 16:04:53 Stent catheter was removed intact over wire. 16:04:54 Wire removed. 16:04:54 Guide catheter removed. 16:05:04 Procedure ended.(Physican Out) 16:05:15 ZEPHYR REGULAR TR BAND (376026) opened to sterile field. 16:05:30 Sheath removed intact; hemostasis achieved with Mechanical Compression to the Right Radial artery. 16:07:04 Fluoroscopy time 03.50 minutes. 16:07:10 Flurop Dose total: 1037 16:07:10 Fluoroscopy dose: 1037 mGy 16:07:16 Dose Area Product 50314 mGy/cm. 16:07:20 Contrast amount:Isovue 300 101ml. 16:07:23 Maximum allowable dose exceeded? No. 16:07:24 Sharps counted by scrub and verified by R.N. 16:07:27 [place] band inflated with 7cc of air. 16:07:31 Post-procedure physical assessment completed. ASA score P 2 - A patient with mild systemic disease as per Az Kelly MD. 16:07:46 Post procedure rhythm: sinus rhythm 16:08:37 Estimated blood loss: 10 ml 16:08:39 Post procedure instruction explained to patient.Patient verbalizes understanding. 16:08:39 Patient needs reinforcement of post procedure teaching. 16:08:53 Procedure type changed to Cath procedure, Diagnostic procedure, LHC, LHC w/Coronaries, PCI procedure, Coronary Stent, Coronary Stent Initial 16:09:49 Procedure and supply charges have been captured, reviewed, submitted and are correct. 16:09:52 Procedure Complication : No complications 16:12:06 Vital chart was stopped 16:12:07 See physician's report for complete and final results. 16:12:09 Report given to [facility] II. 16:12:16 Patient transfered to Med II with Bed. 16:12:17 Procedure ended. 16:12:17 Full Disclosure recording stopped 16:12:22 End room use (Document Last) 16:13:17 Effient 60 mg P.O. was administered by Eugenia Chung RN; for antiplatelet therapy; Intervention Summary Intervention Notes Time ActionType Lesion and Equipment Used Action# Pressure Duration Attributes 16:03:31 Place stent Mid CX ANAND RX 2.5 x 1 13 00:00 12 stent ([id number]) 16:03:48 Reinflate Mid CX ANAND RX 2.5 x 2 21 00:00 stent 12 stent balloon ([id number]) 16:04:20 Reinflate Mid CX ANAND RX 2.5 x 3 21 00:00 stent 12 stent balloon ([id number]) Device Usage Item Name Manufacture Quantity Catalog Number Hospital Part Current M inimal Lot# / Charge Number Stock Stock Serial# Code ACIST Syringe Acist 1 91991 642664 317176 673822 2 0 (57893) Medical Systems Inc Bag Decanter Microtek 1 2001S 509900 18976 846113 5 (2001S) Medical Inc. ACIST Hand Acist 1 29248 087243 865575 737770 5 Control Medical (74356) Systems Inc ACIST Manifold Acist 1 60633 539537 671777 532062 5 (50201) Medical Systems Inc Tegaderm 4 x 4 3M 1 1626W 230238 432493 796037 5 (1626W) Medline Cath Medline 1 [id number] 766991 38536 780526 5 Pack ([id number]) MBrace Wrist Advanced 1 140-0250-00 438156 55649 031959 5 Support Vascular (266947639) Dynamics EMERALD Guide Cardinal 1 502-770 221885 516432 379997 5 Wire (065-632) Health SHEATH 6FR Cardinal 1 1170250 668034 2630057 271657 5 RAIN (1955405) Health DIAGNOSTIC Terumo 1 40-1823 429652 303971 467854 5 Universal 110cm 5 Fr catheter (670128) CHOICE PT [place] 1 [id number] 184878 558393 248445 5 Extra Support Scientific 182cm wire (6424080G7) INFLATOR Merit Merit 1 GV0264 601795 748951 360992 1 5 JiaThisksSnapYeti (UZ4450) GUIDE 6FR Cardinal 1 71328903 653934 406190 379039 1 0 XBLAD 3.5 Health catheter (91283330) ANAND RX 2.5 x Medtronic 1 [id number] 159856 9868457 637861 5 [id number] 12 stent ([id number]) ZEPHYR REGULAR Cardinal 1 901416 107534 7896307 515972 5 [place] (068219) Signature Audit [place] Stage Time Signature Unsigned Intra-Procedure 06/10/2019 Shana Tao 4:15:43 PM RT(R) Signatures Performing Physician : Signature : Az Kelly MD Date : Time : Monitor : Shana Tao Signature : RT Date : Time : Nurse : Eugenia Sheldon RN Signature : Date : Time : [address] [place] [address]
[2019-06-10 12:11] LABS: BASOPHILS 0.3 % (0-2); EOSINOPHILS 1.6 % (0-7); HEMOGLOBIN 16.9 g/dL (13.5-17.5); IMMATURE GRANULOCYTES 0.5 % (0-5); LYMPHOCYTES 9.7 % (15-50); MCH 32.6 pg (26.0-34.0); MCV 90.7 fL (80.0-100.0); MEAN PLATELET VOLUME 10.1 fL (7.4-10.4); MONOCYTES 7.9 % (2-11); PLATELET COUNT 308 10x3/uL (130-400); RBC 5.18 10x6/uL (4.20-6.10); RDW 12.9 % (11.5-14.5); WBC 12.9 10x3/uL (4.8-10.8)
[2019-06-10 12:21] LABS: APTT 25.4 SECONDS (22.8-39.4); INR 1.16 (0.85-1.17); PROTIME 14.3 SECONDS (11.6-15.0)
[2019-06-10 12:24] LABS: ALBUMIN 4.1 g/dL (3.4-5.0); ALKALINE PHOSPHATASE 89 U/L (46-116); ALT (SGPT) 59 U/L (10-68); BILIRUBIN - TOTAL 0.82 mg/dL (0.2-1.3); CALC OSMOLALITY 285 mosm/kg (275-300); CALCIUM 8.9 mg/dL (8.5-10.1); CARBON DIOXIDE 30.1 mmol/L (21.0-32.0); CHLORIDE - SERUM 107 mmol/L (98-107); CREATININE - SERUM 0.9 mg/dL (0.6-1.3); GLUCOSE 139 mg/dL (74-106); POTASSIUM - SERUM 4.8 mmol/L (3.5-5.1); SODIUM 142 mmol/L (136-145); UREA NITROGEN 15 mg/dL (7-18); eGFR NON AFRICAN AMERICAN 87 mL/min (90-120)
[2019-06-10 12:35] LABS: CKMB 3.3 U/L (0.0-3.6); CREATINE KINASE 162 UL (21-232)
[2019-06-10 12:40] LABS: TROPONIN-I < 0.017 ng/mL (0.000-0.060)
[2019-06-10 13:00] VITALS: BP 119/58
[2019-06-10 13:31] VITALS: BP 117/63
[2019-06-10 14:00] VITALS: BP 132/68
--- NOTE | 2019-06-10 14:31 | HP ---
PATIENT: GINNY GALEAS MEDICAL RECORD: [id number] ACCOUNT: [id number] LOCATION:[address] : 44 ADMISSION DATE: 06/10/19 PCP: GINNY MONDRAGON MD HISTORY AND PHYSICAL EXAMINATION DIAGNOSES: 1. Unstable angina. 2. Coronary artery disease. 3. Previous multivessel percutaneous transluminal coronary angioplasty stent. 4. Hypertension. 5. Hyperlipidemia. HISTORY OF PRESENT ILLNESS: Mr. Galeas presents with unstable anginal pain that started today. He had very severe chest pain, 8/10, just like his previous angina. He continues to have chest pain now. He has a pressure at 3/10. His last cardiac stenting was in March. He has 16 stents total. PHYSICAL EXAMINATION: CONSTITUTIONAL/GENERAL APPEARANCE: Well nourished, well developed, appears stated age. EYES: Lids and conjunctivae noninjected. No discharge. No pallor. ENT: Lips within normal limit. No cyanosis. No pallor. NECK: Carotid arteries, bilateral normal upstroke. No bruits. No thrills. No jugular venous pressure or distention. CERVICAL LYMPH NODES: Nontender. Nonenlarged. THYROID: Not enlarged. No nodules. CARDIOVASCULAR: Precordial exam, nondisplaced. No heaves or pericardial thrills. Rate and rhythm, regular. Heart sounds, normal S1, normal S2. No S3, no gallop, no rub. Systolic murmur, not heard. Diastolic murmur, not heard. RESPIRATORY: Respiratory effort, unlabored. Normal curvature. No thoracic deformity. No chest wall tenderness. Percussion, resonant. Auscultation, clear. No wheezes, no rales, no rhonchi. ABDOMEN: Soft, nondistended, nontender. No abdominal pain, no vomiting and normal appetite. MUSCULOSKELETAL: No joint tenderness, normal gait, normal tone. SKIN: Warm and dry. OVERALL IMPRESSION: Unstable angina just like that of his previous angina with continued chest discomfort. At this time, he is bradycardic in the 50s. He does not need a beta blake. His systolic blood pressure is in the 110 range. We will add nitro paste and proceed with coronary angiography later this afternoon. Further care depends upon the findings of the angiography. TRANSINT:[id number] Voice Confirmation ID: [id number] DOCUMENT ID: [id number] HISTORY AND PHYSICAL [id number] GINNY GALEAS JEFFREY MD at 1431 CC: [id number] DICTATION DATE: 06/10/19 120 SUPERVISOR FELLING BUCKING: 06/10/19 1209 ADM IN [place] [id number] [place] [id number]
[2019-06-10] MEDS ORDERED: NITROQUICK0.4 MG SL (15:04)
[2019-06-10 17:09] VITALS: BP 123/67
[2019-06-10 17:19] VITALS: BP 115/60; Ht 185.4 cm; Wt 94.1 kg
[2019-06-10 18:48] LABS: CKMB 157.7 U/L (0.0-3.6)
[2019-06-10 18:52] LABS: CREATINE KINASE 1181 UL (21-232)
[2019-06-10 18:54] LABS: TROPONIN-I 44.323 ng/mL (0.000-0.060)
--- NOTE | 2019-06-10 19:00 | NUR ---
Pt resting in bed. Alert and oriented X 4. Denies pain. TR band in place. No signs of bleeding. Denies needs. Call light in reach. Pt instructed to call for assistance before getting out of bed. verbalized understanding.
[2019-06-10 20:00] VITALS: BP 103/55
[2019-06-11] VITALS: BP 117/65
[2019-06-11 03:33] LABS: BASOPHILS 0.2 % (0-2); EOSINOPHILS 2.3 % (0-7); HEMATOCRIT 44.8 % (42.0-54.0); HEMOGLOBIN 15.5 g/dL (13.5-17.5); IMMATURE GRANULOCYTES 0.5 % (0-5); MCH 31.5 pg (26.0-34.0); MCHC 34.6 g/dL (31.0-37.0); MCV 91.1 fL (80.0-100.0); MEAN PLATELET VOLUME 10.5 fL (7.4-10.4); MONOCYTES 11.8 % (2-11); NEUTROPHILS 66.2 % (40-80); PLATELET COUNT 311 10x3/uL (130-400); RBC 4.92 10x6/uL (4.20-6.10); RDW 13.1 % (11.5-14.5); WBC 13.5 10x3/uL (4.8-10.8)
[2019-06-11 03:51] LABS: ALBUMIN 3.4 g/dL (3.4-5.0); ALKALINE PHOSPHATASE 75 U/L (46-116); BILIRUBIN - TOTAL 0.83 mg/dL (0.2-1.3); CALCIUM 8.1 mg/dL (8.5-10.1); CARBON DIOXIDE 29.1 mmol/L (21.0-32.0); CHLORIDE - SERUM 108 mmol/L (98-107); CREATININE - SERUM 0.8 mg/dL (0.6-1.3); POTASSIUM - SERUM 4.2 mmol/L (3.5-5.1); PROTEIN - SERUM 5.7 g/dL (6.4-8.2); SODIUM 142 mmol/L (136-145); UREA NITROGEN 14 mg/dL (7-18); eGFR NON AFRICAN AMERICAN > 90 mL/min (90-120)
[2019-06-11 03:52] LABS: ALT (SGPT) 76 U/L (10-68); CALC OSMOLALITY 282 mosm/kg (275-300); GLUCOSE 86 mg/dL (74-106)
[2019-06-11 04:00] VITALS: BP 113/65
--- NOTE | 2019-06-11 07:15 | NUR ---
RECEIVED PT IN BED AAOX4 RESP UNLABORED SKIN W/D COLOR WNL RT WRIST DRSG C/D/I DENIES ANY PAIN OR NEEDS AT THIS TIME
[2019-06-11] MEDS ORDERED: EFFIENT10 MG PO (08:37)
--- NOTE | 2019-06-11 10:09 | NUR ---
REVIEWED DISCHARGE INSTRUCTIONS WITH PT STATES UNDERSTANDING COPY GIVEN DCD SALINE LOCK TO LAC WITH IV CATHETER INTACT SITE FREE OF REDNESS OR EDEMA PT DISCHARGED HOME IN STABLE CONDITION LEFT UNIT VIA W/C WITH ALL PERSONAL BELONGINGS
--- NOTE | 2019-06-11 15:34 | OP ---
PATIENT NAME: GINNY MAXWELL MEDICAL RECORD: [id number] :44 LOCATION:D.M2 D.2117 ADMISSION DATE:06/10/19 SURGEON: ISAK NEWMAN MD DATE OF OPERATION: 06/10/2019 DATE OF SERVICE: 06/10/2019 PROCEDURES: 1. PTCA stent left circumflex. 2. Left heart catheterization. 3. Selective coronary angiography. 4. Left ventriculogram. INDICATION: Unstable angina and coronary artery disease. PROCEDURE IN DETAIL: After informed consent was obtained and after a detailed description of the risks, benefits as well as alternative therapies, the patient elected to proceed with angiogram and angioplasty. The right radial area was prepped and draped in normal sterile fashion. Right radial artery was cannulated via modified Seldinger technique with placement of 6-Ukrainian sheath. All catheters exchanged through this sheath. FINDINGS: The left ventriculogram was performed in standard 30-degree DAVIS view, reveals good cardiac wall motion, ejection fraction is 60%. SELECTIVE CORONARY ANGIOGRAPHY: 1. Left main has no significant angiographic disease. 2. Left anterior descending has previously placed stents, these are widely patent with no significant restenosis. No disease elsewise of significance throughout the LAD or its branches. 3. Left circumflex, ramus intermedius has previously placed stents, these are widely patent. 4. Left circumflex has previously placed stents. There is 95% stenosis with active thrombus in the distal aspect of the stent. 5. The right coronary has previously placed stents, these are widely patent with no significant restenosis. No disease elsewise of the RCA or its branches. 6. MEDICAL APPOINTMENT SCHEDULER stent of the circumflex. Integrilin was given. The circumflex was addressed with a 2.5 x 12 mm Javid taken to 21 atmospheres. Ballooning was undertaken throughout the thrombus area. Result was 0% residual stenosis. No further evidence of thrombus or stenosis. OVERALL IMPRESSION: Successful percutaneous transluminal coronary angioplasty stent of the circumflex going from 95% initial stenosis to 0% residual. TRANSINT:[id number] Voice Confirmation ID: [id number] DOCUMENT ID: [id number] ISAK NEWMAN MD at 1534 CC: [id number] DICTATION DATE: 06/10/19 1611 [facility]: 06/10/19 1624 DIS IN 06/11/19 [facility] [address] [place] [address]
--- NOTE | 2019-06-14 11:24 | DS ---
PATIENT:GINNY GALEAS :44 MEDICAL RECORD: [id number] DISCHARGE SUMMARY ADMISSION DATE: 06/10/19 DISCHARGE DATE: 06/11/19 DISCHARGE DIAGNOSES: 1. Unstable angina. 2. Coronary artery disease. 3. Percutaneous transluminal coronary angioplasty stent of left circumflex this admission. HOSPITAL COURSE: Mr. Galeas presents with unstable anginal symptomatology, found to have subacute stent thrombosis of the previously placed stent in the circumflex with 90% stenosis, underwent successful PTCA stent of this territory. He was changed from Plavix to Effient, had no further symptomatology, will see cardiology in 1 month. TRANSINT:[id number] Voice Confirmation ID: [id number] DOCUMENT ID: [id number] ISAK NEWMAN MD at 1124 CC: [id number] DICTATION DATE: 06/11/19 1146 SENIOR SECURITY ARCHITECT: 06/12/19 0223 DIS IN 06/11/19 [id number] [place] [address]
== END 2019-06-11 10:09 | disposition home or self-care (01) ==
LOC: OBSVTIME → D.ER 11:23 → D.OPS 11:23 → EDSTATUS 11:51 → D.M2 12:29 → D.ER 12:29 → D.M2 12:29 → OBSVTIME 12:35 → D.ER 14:40 → D.OPS 06-11 10:09 → D.M2 06-11 10:09
PROVIDERS: Family Medicine; ATTEND Internal Medicine Interventional Cardiology
DX: I25.110 Atherosclerotic heart disease of native coronary artery with unstable angina pectoris (principal); I10 Essential (primary) hypertension; E78.5 Hyperlipidemia, unspecified
CPT/HCPCS: 93458; C9600